=== PATIENT | male | born 1995 | race American Indian/Alaskan Native ===

== ENCOUNTER 2017-08-04 06:18 | Inpatient (IN) | payer MEDICAID ==
[2017-08-04] MEDS ORDERED: ATIVAN IV ONE (06:21)
[2017-08-04] MEDS ORDERED: KEPPRA 1,000 MG in NACL 0.9% 100 ML IV ONE (06:30)
[2017-08-04] MEDS: KEPPRA 1,000 MG/NS 0.75% 100ML 1,000 MG/100 ML BAG IV ONE ×3 (06:40→06:57)
[2017-08-04] MEDS ORDERED: NACL 0.9% 1000 ML 1,000 ML IV ONE (07:10)
--- NOTE | 2017-08-04 07:15 | Emergency Department Report ---
HPI - General Chief Complaint: Seizure Time Seen by Provider: 08/04/17 07:04 - HPI HPI: Room 2 The patient is a 22-year-old male presenting with a chief complaint seizure. Mother states the patient had a seizure at approximately 05:00 this morning while in the last approximately 2-3 minutes. The patient had a second seizure 20 minutes later and then a third seizure approximately 10 minutes after that. At this time the mother called EMS. Mother states the patient may have missed his Keppra last night as well as one time before. The patient's last seizure before today was possibly 2 months ago Location: Central nervous system Duration: [See above] Quality: Generalized tonic-clonic Severity: Moderate Modifying factors: [see above] Context: [see above] Mode of transportation: [not driving] ED Past Medical Hx - Past Medical History Previous Medical History?: Yes Hx Seizures: Yes Additional medical history: fragile x syndrome, MR and seizures - Surgical History Past Surgical History?: No - Family History Family history: no significant - Social History Smoking Status: Never Smoker Substance Use Type: None - Medications Home Medications: Home Medications Medication Instructions Recorded Confirmed Last Taken Type levETIRAcetam [Keppra ORAL LIQ] 1,700 mg PO BID #1 bottle 03/22/16 08/04/17 Rx ED Review of Systems ROS: Stated complaint: SEIZURE Other details as noted in HPI Comment: Unobtainable due to pts medical conditions Physical Exam - Physical Exam Vital Signs: Vital Signs 08/04/17 08/04/17 08/04/17 06:23 06:25 06:31 Pulse Rate 115 H 109 H 107 H Respiratory 19 23 18 Rate Blood Pressure 142/97 142/97 O2 Sat by Pulse 93 100 Oximetry 08/04/17 06:35 Pulse Rate 108 H Respiratory 21 Rate Blood Pressure 142/97 O2 Sat by Pulse 100 Oximetry Physical Exam: GENERAL: The patient is well-nourished male lying on stretcher postictal. [] HEENT: Normocephalic. Atraumatic. Pupils 4 mm to 2 mm bilaterally. Patient has moist mucous membranes. NECK: Supple. Trachea midline CHEST/LUNGS: Clear to auscultation. There is no respiratory distress noted. HEART/CARDIOVASCULAR: Regular. There is tachycardia. There is no gallop rub or murmur. ABDOMEN: Abdomen is soft, nontender. Patient has normal bowel sounds. There is no abdominal distention. SKIN: There is no rash. There is no edema. There is no diaphoresis. NEURO: The patient is asleep/postictal MUSCULOSKELETAL: There is no evidence of acute injury. ED Course Vital Signs 08/04/17 08/04/17 08/04/17 06:23 06:25 06:31 Pulse Rate 115 H 109 H 107 H Respiratory 19 23 18 Rate Blood Pressure 142/97 142/97 O2 Sat by Pulse 93 100 Oximetry 08/04/17 06:35 Pulse Rate 108 H Respiratory 21 Rate Blood Pressure 142/97 O2 Sat by Pulse 100 Oximetry ED Medical Decision Making - Lab Data Result diagrams: 08/04/17 06:45 08/04/17 06:45 Laboratory Tests 08/04/17 08/04/17 08/04/17 06:29 06:45 06:45 WBC 10.0 RBC 4.96 Hgb 15.9 H Hct 45.8 H MCV 92 MCH 32 MCHC 35 H RDW 13.2 Plt Count 176 Lymph % (Auto) 30.5 [place] % (Auto) 4.1 Eos % (Auto) 0.9 Baso % (Auto) 0.6 Lymph # 3.0 [place] # 0.4 Eos # 0.1 Baso # 0.1 Seg Neutrophils % 63.9 Seg Neutrophils # 6.4 Sodium 142 Potassium 3.8 Chloride 101.7 Carbon Dioxide 24 Anion Gap 20 BUN 17 Creatinine 0.6 L Estimated GFR > 60 BUN/Creatinine Ratio 28 Glucose 124 H POC Glucose 138 H Calcium 8.8 Magnesium 2.10 - Radiology Data Radiology results: report reviewed (CT head), image reviewed (CT head) CT head (read by radiologist)-cranial CT scan within normal limits. No acute process noted. No significant change since 01/31/2011 - Differential Diagnosis epilepsy Critical care attestation.: If time is entered above; I have spent that time in minutes in the direct care of this critically ill patient, excluding procedure time. ED Disposition Clinical Impression: Status epilepticus Disposition: -09 OP ADMIT IP TO THIS HOSP Is pt being admited?: Yes Does the pt Need Aspirin: No Condition: Fair Referrals: PRIMARY CARE, [Primary Care Provider] - 3-5 Days Time of Disposition: 12:06 (hospitalist notified)
[2017-08-04 07:32] LABS: Basophils % (Auto) 0.6 % (0.0-1.8); Eosinophils % (Auto) 0.9 % (0.0-4.3); Hematocrit 45.8 % (35.5-45.6); Hemoglobin 15.9 gm/dl (11.8-15.2); Mean Corpuscular HGB Conc 35 % (32-34); Mean Corpuscular Hemoglobin 32 pg (28-32); Mean Corpuscular Volume 92 fl (84-94); Platelet Count 176 K/mm3 (140-440); Red Blood Count 4.96 M/mm3 (3.65-5.03); Red Cell Distribution Width 13.2 % (13.2-15.2)
[2017-08-04 07:35] LABS: Anion Gap 20 mmol/L; BUN/Creatinine Ratio 28; Blood Urea Nitrogen 17 mg/dL (9-20); Calcium 8.8 mg/dL (8.4-10.2); Carbon Dioxide 24 mmol/L (22-30); Chloride 101.7 mmol/L (98-107); Glucose 124 mg/dL (75-100); Potassium 3.8 mmol/L (3.6-5.0); Sodium 142 mmol/L (137-145)
[2017-08-04] MEDS ORDERED: NACL 0.9% 1000 ML 1,000 ML ONE (10:45)
--- NOTE | 2017-08-04 10:52 | Cat Scan Report ---
CT HEAD WITHOUT CONTRAST: HISTORY: Seizure, status epilepticus. Serial contiguous axial images were obtained through the cranium. Intravenous contrast material was not administered. The ventricles are normal in size and appearance. There is no mass effect or midline shift. No areas of abnormally increased or decreased attenuation are seen. No mass lesion is seen. The mastoid air cells and visualized portions of the sinuses are normal. IMPRESSION: Cranial CT scan within normal limits. No acute process noted. No significant change since 01/31/11.
[2017-08-04] MEDS ORDERED: TYLENOL PO PRN (11:41)
[2017-08-04] MEDS ORDERED: MILK OF MAGNESIA PO PRN (11:41)
[2017-08-04] MEDS ORDERED: ZOFRAN IV PRN (11:41)
[2017-08-04] MEDS ORDERED: PROVENTIL IH PRN (11:41)
[2017-08-04] MEDS ORDERED: DULCOLAX PR PRN (11:41)
--- NOTE | 2017-08-04 11:43 | History and Physical Report ---
History of Present Illness Chief complaint: he keeps having seizures. History of present illness: 22 YO Male with Seizure Disorder, Fragile X Syndrome, Mental Retardation presents to ED for evaluation. Pt unable to provide history, but history provided by patient mother, who is at bedside during exam and interview. As per mother, patient was asleep but experienced a witnessed seizure at approximately 05:00 this morning. The seizure was witnessed by the mother and lasted approximately 2-3 minutes. The patient had a second seizure 20 minutes later and then a third seizure approximately 10 minutes after that. At this time the mother called EMS. Upon arrival, patient was postictal, lethargic, and nonverbal. Pt was transported to [facility] for evaluation. Mother states the patient missed his Keppra dosing over the past 2 days. The patient experienced a breakthrough seizure approximately 2 months ago, but was noncompliant with his medications at that time. No reports of fever, chills, CP, Palpitations, trauma , recent ill contacts, vision changes, changes in mood/daily routine, or pain. Past History Past Medical History: seizures, other (Fragile X Synddrome, MR) Past Surgical History: No surgical history, Other (reviewed) Social history: single, lives with family. denies: smoking, alcohol abuse, prescription drug abuse Family history: no significant family history (reviewed) Medications and Allergies Allergies Allergy/AdvReac Type Severity Reaction Status Date / Time No Known Allergies Allergy Unverified 03/22/16 10:33 Home Medications Medication Instructions Recorded Confirmed Last Taken Type levETIRAcetam [Keppra ORAL LIQ] 1,700 mg PO BID #1 bottle 03/22/16 08/04/17 Rx Active Meds: Active Medications Acetaminophen (Tylenol) 650 mg PO Q4H PRN PRN Reason: Pain MILD(1-3)/Fever >100.5/LOPEZ Albuterol (Proventil) 2.5 mg IH Q4HRT PRN PRN Reason: Shortness Of Breath Bisacodyl (Dulcolax) 10 mg MT QDAY PRN PRN Reason: Constipation unrelieved by MOM Levetiracetam (Keppra) 1,700 mg PO BID GENARO Magnesium Hydroxide (Milk Of Magnesia) 30 ml PO Q4H PRN PRN Reason: Constipation Ondansetron HCl (Zofran) 4 mg IV Q8H PRN PRN Reason: N/V unrelieved by Reglan Review of Systems ROS unobtainable: due to mental status Exam - Constitutional Vitals: Temp Pulse Resp BP Pulse Ox 99 H 17 133/93 100 08/04/17 09:00 08/04/17 09:00 08/04/17 09:00 08/04/17 09:00 General appearance: Present: mild distress - EENT Eyes: Present: PERRL ENT: hearing intact, clear oral mucosa - Neck Neck: Present: supple, normal ROM - Respiratory Respiratory effort: normal Respiratory: bilateral: CTA - Cardiovascular Heart Sounds: Present: S1 & S2. Absent: rub, click - Extremities Extremities: pulses symmetrical, No edema Peripheral Pulses: within normal limits - Abdominal General gastrointestinal: Present: soft, non-tender, non-distended, normal bowel sounds Male genitourinary: Present: normal - Integumentary Integumentary: Present: clear, warm, dry - Musculoskeletal Musculoskeletal: gait normal, strength equal bilaterally - Psychiatric Psychiatric: appropriate mood/affect, intact judgment & insight - Neurologic Neurologic: CNII-XII intact, moves all extremities, other (lethargic) Results - Labs CBC & Chem 7: 08/04/17 06:45 08/04/17 06:45 Labs: Abnormal lab results 08/04/17 08/04/17 08/04/17 Range/Units 06:29 06:45 06:45 Hgb 15.9 H (11.8-15.2) gm/dl Hct 45.8 H (35.5-45.6) % MCHC 35 H (32-34) % Creatinine 0.6 L (0.8-1.5) mg/dL Glucose 124 H (75-100) mg/dL POC Glucose 138 H (70-105) Assessment and Plan - Patient Problems (1) Status epilepticus Current Visit: Yes Status: Acute Plan to address problem: Resume keppra therapy, neuro checks, supprotive care, if recurrent seizure will increase keppra dosing, will also consider addition of tegretol if recurrent breakthrough seizures. Pt noncompliant with medication, will continue to monitor for symptoms on therapeutic keppra dose for now. (2) Encephalopathy Current Visit: Yes Status: Acute Plan to address problem: CT head, neuro checks, serial physical exam, (3) Fragile X syndrome Current Visit: Yes Status: Chronic Plan to address problem: Serial neuro exam to evaluate for changes ini neurologic status. Notify MD if deterioration from baseline, (4) Mental retardation Current Visit: Yes Status: Chronic Plan to address problem: Bed alarm, fall precautions, diet with assistance when awake and alert only, aspiration precautions. (5) DVT prophylaxis Current Visit: Yes Status: Acute
[2017-08-04] MEDS: KEPPRA PO SCH (22:47)
[2017-08-04] MEDS ORDERED: ATIVAN IV PRN (23:48)
--- NOTE | 2017-08-05 10:15 | Progress Note ---
Assessment and Plan Assessment and plan: 22 YO Male with Seizure Disorder, Fragile X Syndrome, Mental Retardation presents to ED for evaluation. Pt unable to provide history, but history provided by patient mother, after a witnessed seizure. As per the mother patient takes Keppra for seizure disorder Status epilepticus No acute findings on CT head, continue Keppra, neurology consult Metabolic Encephalopathy Most likely due to post ictal period, now improved Fragile X syndrome Continue supportive care, baseline Mental retardation Continue supportive care History Interval history: Patient is now awake, no longer somnolent. Communicates that he would like to eat. Unable to give any history due to mental retardation Hospitalist Physical - Physical exam Narrative exam: General.: Appears well, no distress, nontoxic HEENT: Moist mucous membranes, extraocular muscles intact, no lymphadenopathy Neck: supple Cardiac: S1-S2 heard Lungs: clear to auscultation bilaterally Abdomen: soft , nontender, nondistended, bowel sounds positive Extremities: no edema clubbing or cyanosis Skin: no rash or lesions Neurologic: He moves his head and upper extremities. He communicates that he wants to eat. He is polite Patient is mentally retarded and lacks insight - Constitutional Vitals: Temp Pulse Resp BP Pulse Ox 97.7 F 66 20 138/98 100 08/05/17 08:10 08/05/17 08:10 08/05/17 08:10 08/05/17 08:10 08/05/17 08:10 General appearance: Present: mild distress Results - Labs CBC & Chem 7: 08/04/17 06:45 08/04/17 06:45 Labs: Laboratory Last Values WBC 10.0 K/mm3 (4.5-11.0) 08/04/17 06:45 RBC 4.96 M/mm3 (3.65-5.03) 08/04/17 06:45 Hgb 15.9 gm/dl (11.8-15.2) H 08/04/17 06:45 Hct 45.8 % (35.5-45.6) H 08/04/17 06:45 MCV 92 fl (84-94) 08/04/17 06:45 MCH 32 pg (28-32) 08/04/17 06:45 MCHC 35 % (32-34) H 08/04/17 06:45 RDW 13.2 % (13.2-15.2) 08/04/17 06:45 Plt Count 176 K/mm3 (140-440) 08/04/17 06:45 Lymph % (Auto) 30.5 % (13.4-35.0) 08/04/17 06:45 [place] % (Auto) 4.1 % (0.0-7.3) 08/04/17 06:45 Eos % (Auto) 0.9 % (0.0-4.3) 08/04/17 06:45 Baso % (Auto) 0.6 % (0.0-1.8) 08/04/17 06:45 Lymph # 3.0 K/mm3 (1.2-5.4) 08/04/17 06:45 Gregory # 0.4 K/mm3 (0.0-0.8) 08/04/17 06:45 Eos # 0.1 K/mm3 (0.0-0.4) 08/04/17 06:45 Baso # 0.1 K/mm3 (0.0-0.1) 08/04/17 06:45 Seg Neutrophils % 63.9 % (40.0-70.0) 08/04/17 06:45 Seg Neutrophils # 6.4 K/mm3 (1.8-7.7) 08/04/17 06:45 Sodium 142 mmol/L (137-145) 08/04/17 06:45 Potassium 3.8 mmol/L (3.6-5.0) 08/04/17 06:45 Chloride 101.7 mmol/L (98-107) 08/04/17 06:45 Carbon Dioxide 24 mmol/L (22-30) 08/04/17 06:45 Anion Gap 20 mmol/L 08/04/17 06:45 BUN 17 mg/dL (9-20) 08/04/17 06:45 Creatinine 0.6 mg/dL (0.8-1.5) L 08/04/17 06:45 Estimated GFR > 60 ml/min 08/04/17 06:45 BUN/Creatinine Ratio 28 % 08/04/17 06:45 Glucose 124 mg/dL (75-100) H 08/04/17 06:45 POC Glucose 138 (70-105) H 08/04/17 06:29 Calcium 8.8 mg/dL (8.4-10.2) 08/04/17 06:45 Magnesium 2.10 mg/dL (1.7-2.3) 08/04/17 06:45 - Imaging and Cardiology CT Scan - head: image reviewed (no acute findings)
[2017-08-05] MEDS: KEPPRA PO SCH (10:26)
--- NOTE | 2017-08-05 17:05 | Discharge Summary ---
Providers - Providers Date of Admission: 08/04/17 11:41 Attending physician: BRIANNE FELIZ MD 08/05/17 10:05 Consult to Physician [CONS] Routine Consulting Provider: JUAN RAMON HOFFMANN Reason For Exam: seizure Place consult to:: dr. hoffmann Notified:: office Phone number called:: Was contact made?: Yes If yes, spoke with:: gonzalez Time called:: 14:31 Speech Therapy Evaluation and Treat [CONS] Routine Reason For Exam: dysphagia Primary care physician: [employer] REPRESENTATIVE Hospitalization Condition: Fair Hospital course: 22 YO Male with Seizure Disorder, Fragile X Syndrome, Mental Retardation presents to ED for evaluation. Pt unable to provide history, but history provided by patient mother, after a witnessed seizure. As per the mother patient takes Keppra for seizure disorder, and had missed the PM dose. Patient received Ativan after which seizure terminated. He did have postictal state. He returned to his baseline mentation. His mother was counseled that he must not miss any dose of Keppra in future. He was discharged in improved condition Discharge diagnoses Status epilepticus Metabolic Encephalopathy Fragile X syndrome Mental retardation Disposition: DC-01 TO HOME OR SELFCARE Time spent for discharge: 33 minutes Core Measure Documentation - Palliative Care Palliative Care/ Comfort Measures: Not Applicable - Core Measures Any of the following diagnoses?: none Exam - Physical Exam Narrative exam: General.: Appears well, no distress, nontoxic HEENT: Moist mucous membranes, extraocular muscles intact, no lymphadenopathy Neck: supple Cardiac: S1-S2 heard Lungs: clear to auscultation bilaterally Abdomen: soft , nontender, nondistended, bowel sounds positive Extremities: no edema clubbing or cyanosis Skin: no rash or lesions Neurologic: He moves his head and upper extremities. He communicates that he wants to eat. He is polite Patient is mentally retarded and lacks insight - Constitutional Vitals: Temp Pulse Resp BP Pulse Ox 97.7 F 66 20 138/98 97 08/05/17 08:10 08/05/17 08:10 08/05/17 08:10 08/05/17 08:10 08/05/17 11:31 Plan Follow up with: KEVIN VANN MD [Primary Care Provider] - 3-5 Days
[2017-08-05 17:18] VITALS: BP 125/80
== END 2017-08-05 19:00 | disposition home or self-care (01) | DRG 101 ==
LOC: ED 06:18 → 3A 11:41
PROVIDERS: ADMIT Internal Medicine; ATTEND Internal Medicine
DX: G40.901 Epilepsy, unspecified, not intractable, with status epilepticus (principal); Q99.2 Fragile X chromosome; F79 Unspecified intellectual disabilities; I34.0 Nonrheumatic mitral (valve) insufficiency
CPT/HCPCS: 36415; 70450; 80048; 82962; 83735; 85025; 96361; 96365; J1953; J7030

== ENCOUNTER 2020-07-27 09:33 | Emergency (ER) | payer MEDICAID ==
[2020-07-27] MEDS ORDERED: levETIRAcetam 1000 MG/NS 0.75% 1,000 MG/100 ML BAG IV ONE (10:20)
[2020-07-27] MEDS ORDERED: SODIUM CHLORIDE 0.9% 1000 ML 1,000 ML IV ONE (11:11)
--- NOTE | 2020-07-27 11:16 | Emergency Department Report ---
ED Seizure HPI - General Chief Complaint: Seizure Stated Complaint: ACTIVE SEIZURE Time Seen by Provider: 07/27/20 10:18 Source: EMS Mode of arrival: Stretcher Limitations: Other - History of Present Illness Initial Comments: Patient is 25 years old male with history of seizure on Keppra. Patient brought to the emergency room via EMS from home with active seizure. Patient received Ativan 1 mg IM by EMS. Patient received another 1mg IV in the ER that he stopped his seizure. Patient is post ictal now. Found patient to have history of fragile X syndrome and mental retardation. MD Complaint: seizure -: Sudden, This morning Description of Episode: loss of consciousness, tonic-clonic movement, bladder incontinence, post-event confusion Witnessed:: Yes Trauma: No Seizure History: known seizure disorder Place: home Possible Precipitating Event: none - Related Data Previous Rx's Medication Instructions Recorded Last Taken Type levETIRAcetam [Keppra ORAL LIQ] 1,700 mg PO BID #1 bottle 03/22/16 09/12/18 Rx Ciprofloxacin HCl [Cipro] 500 mg PO BID #6 tablet 09/13/18 Unknown Rx Sennosides [Senna] 8.6 mg PO BID #60 tablet 09/13/18 Unknown Rx bisacodyL [Dulcolax suppos] 10 mg TN QDAY PRN #30 supp.rect 09/13/18 Unknown Rx polyethylene glycoL 3350 [Miralax 17 gm PO QDAY #30 packet 09/13/18 Unknown Rx 3350] levETIRAcetam [Keppra] 1,500 mg PO BID #470 ml 07/27/20 Unknown Rx Allergies Allergy/AdvReac Type Severity Reaction Status Date / Time No Known Allergies Allergy Unverified 03/22/16 10:33 ED Review of Systems ROS: Stated complaint: ACTIVE SEIZURE Other details as noted in HPI Comment: All other systems reviewed and negative Constitutional: denies: chills, fever Respiratory: denies: cough, shortness of breath Cardiovascular: denies: chest pain Gastrointestinal: denies: abdominal pain Musculoskeletal: denies: back pain ED Past Medical Hx - Past Medical History Previous Medical History?: Yes Hx Congestive Heart Failure: No Hx Diabetes: No 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) Hx Asthma: No Hx COPD: No Hx HIV: No Additional medical history: MR and seizures - Social History Smoking Status: Unknown if ever smoked - Medications Home Medications: Home Medications Medication Instructions Recorded Confirmed Last Taken Type levETIRAcetam [Keppra ORAL LIQ] 1,700 mg PO BID #1 bottle 03/22/16 09/13/18 09/12/18 Rx Ciprofloxacin HCl [Cipro] 500 mg PO BID #6 tablet 09/13/18 Unknown Rx Sennosides [Senna] 8.6 mg PO BID #60 tablet 09/13/18 Unknown Rx bisacodyL [Dulcolax suppos] 10 mg TN QDAY PRN #30 supp.rect 09/13/18 Unknown Rx polyethylene glycoL 3350 [Miralax 17 gm PO QDAY #30 packet 09/13/18 Unknown Rx 3350] levETIRAcetam [Keppra] 1,500 mg PO BID #470 ml 07/27/20 Unknown Rx ED Physical Exam - General Limitations: Other General appearance: postictal - Head Head exam: Present: atraumatic, normocephalic, normal inspection - Eye Eye exam: Present: normal appearance - ENT ENT exam: Present: mucous membranes dry - Neck Neck exam: Present: normal inspection, full ROM. Absent: tenderness, meningismus - Respiratory Respiratory exam: Present: normal lung sounds bilaterally - Cardiovascular Cardiovascular Exam: Present: tachycardia - GI/Abdominal GI/Abdominal exam: Present: soft, normal bowel sounds. Absent: distended, tenderness, guarding, rebound, rigid, organomegaly, mass, bruit, pulsatile mass, hernia - Extremities Exam Extremities exam: Present: normal inspection, full ROM, normal capillary refill. Absent: pedal edema, calf tenderness - Back Exam Back exam: Present: normal inspection, full ROM. Absent: CVA tenderness (R), CVA tenderness (L) - Neurological Exam Neurological exam: Present: alert, oriented X3, CN II-XII intact - Psychiatric Psychiatric exam: Present: normal mood - Skin Skin exam: Present: warm, intact, normal color ED Course Vital Signs 07/27/20 07/27/20 07/27/20 10:29 11:00 11:30 Temperature 102 F H 99.6 F Pulse Rate 150 H 139 H 122 H Respiratory 14 24 19 Rate Blood Pressure 120/66 99/50 95/51 O2 Sat by Pulse 94 98 98 Oximetry 10/18/20 10/18/20 10/18/20 12:01 12:31 13:01 Temperature Pulse Rate 106 H 101 H 99 H Respiratory 18 17 18 Rate Blood Pressure 95/51 95/51 95/51 O2 Sat by Pulse 98 97 98 Oximetry 07/27/20 07/27/20 07/27/20 13:30 14:00 14:30 Temperature Pulse Rate 96 H 88 95 H Respiratory 18 19 16 Rate Blood Pressure 110/70 108/71 109/70 O2 Sat by Pulse 98 98 99 Oximetry 07/27/20 07/27/20 07/27/20 15:00 15:30 16:00 Temperature Pulse Rate 93 H 91 H 89 Respiratory 19 14 18 Rate Blood Pressure 115/70 115/74 114/71 O2 Sat by Pulse 99 98 99 Oximetry 07/27/20 07/27/20 07/27/20 16:30 17:00 17:30 Temperature Pulse Rate 92 H 95 H 89 Respiratory 16 12 16 Rate Blood Pressure 113/73 117/72 115/74 O2 Sat by Pulse 99 99 100 Oximetry 07/27/20 07/27/20 07/27/20 18:00 18:31 19:01 Temperature Pulse Rate 88 92 H 97 H Respiratory 20 24 14 Rate Blood Pressure 113/73 115/74 125/68 O2 Sat by Pulse 96 96 97 Oximetry 07/27/20 07/27/20 19:31 20:01 Temperature Pulse Rate 81 88 Respiratory 15 23 Rate Blood Pressure 125/68 119/74 O2 Sat by Pulse 96 98 Oximetry ED Medical Decision Making - Lab Data Result diagrams: 07/27/20 10:39 07/27/20 10:39 - Medical Decision Making Patient is 25 years old male with history of seizure on Keppra. Patient brought to the emergency room via EMS from home with active seizure. Patient received Ativan 1 mg IM by EMS. Patient received another 2.mg IV in the ER that he stopped his seizure. Patient is post ictal now. No seizure activity observed in the ER. Labs reviewed and is unremarkable. Patient was postictal for long period of time. Patient received 3 mg of Ativan in total. Patient now is alert but is st ill confused. Patient is moving all his extremities with no focal deficit. Patient given prescription for Keppra. Patient will need to follow-up with his neurologist in the next 2 to 3 days and to return to the ER if he develop any new symptoms. Critical care attestation.: If time is entered above; I have spent that time in minutes in the direct care of this critically ill patient, excluding procedure time. ED Disposition Clinical Impression: Seizure Disposition: DC-01 TO HOME OR SELFCARE Is pt being admited?: No Condition: Stable Instructions: Recurrent Seizures Adult (ED) Prescriptions: levETIRAcetam [Keppra] 1,500 mg PO BID #470 ml Referrals: PRIMARY CARE, [Primary Care Provider] - 3-5 Days
[2020-07-27 11:34] LABS: Hematocrit 44.3 % (35.5-45.6); Mean Corpuscular HGB Conc 34 % (32-34); Mean Corpuscular Volume 92 fl (84-94); Platelet Count 185 K/mm3 (140-440); Red Blood Count 4.84 M/mm3 (3.65-5.03); Red Cell Distribution Width 13.4 % (13.2-15.2)
--- NOTE | 2020-07-27 11:45 | XRay Report ---
CHEST 1 VIEW INDICATION: hypoxia,AMS COMPARISON: FINDINGS: SUPPORT DEVICES: None. HEART / MEDIASTINUM: No significant abnormality. LUNGS / PLEURA: No significant pulmonary or pleural abnormality. No pneumothorax. ADDITIONAL FINDINGS: Gastric distention IMPRESSION: 1. No acute cardiopulmonary disease Signer Name: Lawrence Ugarte MD Signed: 07/27/2020 11:40 AM Workstation Name: [id number]
[2020-07-27 11:52] LABS: Alanine Aminotransferase 16 units/L (7-56); Albumin 4.4 g/dL (3.9-5); Blood Urea Nitrogen 11 mg/dL (9-20); Calcium 8.6 mg/dL (8.4-10.2); Hemolysis Index 9
[2020-07-27 12:12] LABS: BUN/Creatinine Ratio 16; Bilirubin,Direct < 0.2 mg/dL (0-0.2)
[2020-07-27 13:09] LABS: Band Neutrophils # (Manual) 0.1 K/mm3; Basophils % (Manual) 0 % (0.0-1.8); Eosinophils % (Manual) 0 % (0.0-4.3); RBC Morphology Normal; Total Cells Counted 100
[2020-07-27 13:10] LABS: Platelet Estimate Consistent w Auto
[2020-07-27 15:44] LABS: Amorphous Crystals,Urine 1+; Bilirubin,Urine NEG (Negative); Blood,Urine MOD (Negative); Color,Urine Yellow (Yellow); Hyaline Casts,Urine 15 /LPF; Mucus,Urine FEW /HPF
[2020-07-27] MEDS ORDERED: LORazepam 2 MG/ML VIAL ONE (15:45)
[2020-07-27 15:50] LABS: Amphetamine Screen,Urine PRESUMPTIVE NEGATIVE; Benzodiazepines Screen,Urine PRESUMPTIVE NEGATIVE; Cannabinoid Screen,Urine PRESUMPTIVE NEGATIVE; Cocaine Screen,Urine PRESUMPTIVE NEGATIVE; Methadone Screen,Urine PRESUMPTIVE NEGATIVE; Opiate Screen,Urine PRESUMPTIVE NEGATIVE
[2020-07-27] MEDS ORDERED: levETIRAcetam 1000 MG/NS 0.75% 0 MG/0 ML BAG IV ONE (18:15)
[2020-07-27 20:15] VITALS: BP 119/74
== END 2020-07-27 22:45 | disposition home or self-care (01) ==
LOC: ED 09:33
DX: R56.9 Unspecified convulsions (principal); I10 Essential (primary) hypertension; Z79.899 Other long term (current) drug therapy
CPT/HCPCS: 36415; 71045; 80048; 80076; 80307; 81001; 85007; 85025; 93005; 96361; 96374; 99285; J7030; 80320; G0480; J1953; J2060

== ENCOUNTER 2021-02-24 15:55 | Emergency (ER) | payer MEDICAID ==
[2021-02-24] MEDS ORDERED: levETIRAcetam 1000 MG/NS 0.75% 1,000 MG/100 ML BAG IV ONE ×2 (16:11→16:18)
--- NOTE | 2021-02-24 16:31 | Emergency Department Report ---
HPI - General Chief Complaint: Seizure Time Seen by Provider: 02/24/21 16:21 - HPI HPI: Room 21 Patient is a 25-year-old male present with a chief complaint of seizure. Per EMS patient had seizure at home. EMS reports the mother states the patient had not taken his Keppra today. EMS was called and transported the patient to the ED reportedly during registration patient had another generalized tonic-clonic seizure was administered 2 mg of Ativan. At the time of my interview the patient is currently postictal and does not answer questions. 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) Additional medical history: MR and seizures - Surgical History Past Surgical History?: No - Family History Family history: no significant - Social History Smoking Status: Unknown if ever smoked - Medications Home Medications: Home Medications Medication Instructions Recorded Confirmed Last Taken Type levETIRAcetam [Keppra ORAL LIQ] 1,700 mg PO BID #1 bottle 03/22/16 09/13/18 09/12/18 Rx Ciprofloxacin HCl [Cipro] 500 mg PO BID #6 tablet 09/13/18 Unknown Rx Sennosides [Senna] 8.6 mg PO BID #60 tablet 09/13/18 Unknown Rx bisacodyL [Dulcolax suppos] 10 mg [place] QDAY PRN #30 supp.rect 09/13/18 Unknown Rx polyethylene glycoL 3350 [Miralax 17 gm PO QDAY #30 packet 09/13/18 Unknown Rx 3350] levETIRAcetam [Keppra] 1,500 mg PO BID #470 ml 02/24/21 Unknown Rx ED Review of Systems ROS: Stated complaint: SEIZURE Other details as noted in HPI Comment: Unobtainable due to pts medical conditions (Postictal) Physical Exam - Physical Exam Vital Signs: Vital Signs 02/24/21 16:08 Temperature 98.2 F Pulse Rate 113 H Respiratory 16 Rate Blood Pressure 157/94 O2 Sat by Pulse 98 Oximetry Physical Exam: GENERAL: The patient is well-nourished male in a postictal state lying on stretcher. [] HEENT: Normocephalic. Hematoma over the left eyebrow. Swelling to the left side of the upper lip. Patient has moist mucous membranes. NECK: Supple. Trachea midline. No axial step-off CHEST/LUNGS: Clear to auscultation. There is no respiratory distress noted. HEART/CARDIOVASCULAR: Regular. There is no tachycardia. There is no gallop rub or murmur. ABDOMEN: Abdomen is soft, nontender. Patient has normal bowel sounds. There is no abdominal distention. SKIN: There is no rash. There is no edema. There is no diaphoresis. NEURO: The patient is currently postictal and localizes to tactile stimuli. Patient does not respond verbally. Moves all extremities MUSCULOSKELETAL: There is no evidence of acute injury. ED Course Vital Signs 02/24/21 16:08 Temperature 98.2 F Pulse Rate 113 H Respiratory 16 Rate Blood Pressure 157/94 O2 Sat by Pulse 98 Oximetry - Reevaluation(s) Reevaluation #1: 02/24/21 21:14 Patient now sitting up in bed denying complaints. ED Medical Decision Making - Lab Data Result diagrams: 02/24/21 16:37 02/24/21 16:37 Laboratory Tests 02/24/21 02/24/21 02/24/21 16:37 16:37 16:37 WBC 13.2 H RBC 4.51 Hgb 14.3 Hct 42.2 MCV 94 MCH 32 MCHC 34 RDW 13.9 Plt Count 182 Add Manual Diff Complete Total Counted 100 Seg Neutrophils % Customer Retention Representative Seg Neuts % (Manual) 95.0 H Lymphocytes % (Manual) 3.0 L Monocytes % (Manual) 2.0 Promyelocytes % 0 Nucleated RBC % Not Reportable Seg Neutrophils # Man 12.5 H Band Neutrophils # 0.0 Lymphocytes # (Manual) 0.4 L Abs React Lymphs (Man) 0.0 Monocytes # (Manual) 0.3 Eosinophils # (Manual) 0.0 Basophils # (Manual) 0.0 Metamyelocytes # 0.0 Myelocytes # 0.0 Promyelocytes # 0.0 Blast Cells # 0.0 WBC Morphology Not Reportable Hypersegmented Neuts Not Reportable Hyposegmented Neuts Not Reportable Hypogranular Neuts Not Reportable Smudge Cells Not Reportable Toxic Granulation Not Reportable Toxic Vacuolation Not Reportable Dohle Bodies Not Reportable Pelger-Huet Anomaly Not Reportable [place]a Rods Not Reportable Platelet Estimate Consistent w auto Clumped Platelets Not Reportable Plt Clumps, EDTA Not Reportable Large Platelets Not Reportable Giant Platelets Not Reportable Platelet Satelliting Not Reportable Plt Morphology Comment Not Reportable RBC Morphology Not Reportable Dimorphic RBCs Not Reportable Polychromasia Not Reportable Hypochromasia Not Reportable Poikilocytosis Not Reportable Anisocytosis Few Microcytosis Not Reportable Macrocytosis Not Reportable Spherocytes Not Reportable Pappenheimer Bodies Not Reportable Sickle Cells Not Reportable Target Cells Not Reportable Tear Drop Cells Not Reportable Ovalocytes Not Reportable Helmet Cells Not Reportable [place] Bodies Not Reportable Welcome Rings Not Reportable Jonathon Cells Not Reportable Bite Cells Not Reportable Crenated Cell Not Reportable Elliptocytes Not Reportable Acanthocytes (Spur) Not Reportable Rouleaux Not Reportable Hemoglobin C Crystals Not Reportable Schistocytes Not Reportable Malaria parasites Not Reportable Low Bodies Not Reportable Hem Pathologist Commnt No Sodium 139 Potassium 3.2 L Chloride 103.0 Carbon Dioxide 20 L Anion Gap 19 BUN 6 L Creatinine 0.5 L Estimated GFR > 60 BUN/Creatinine Ratio 12 Glucose 115 H Calcium 8.0 L Magnesium 2.10 - Radiology Data Radiology results: report reviewed (CT head, CT cervical spine), image reviewed (CT head, CT cervical spine) [facility] [address] [place] [address] Cat Scan Report Signed Patient: MARILY TYLER MR#: [id number] : 1995 Acct:[id number] Age/Sex: 25 / M ADM Date: 02/24/21 Loc: ED Attending Dr: Ordering Physician: CHRISTINE HERRERA MD Date of Service: 02/24/21 Procedure(s): CT head/brain wo con Accession Number(s): [id number] cc: CHRISTINE HERRERA MD CT head/brain wo con INDICATION: Altered mental status. TECHNIQUE: All CT scans at this location are performed using CT dose reduction for ALARA by means of automated exposure control. COMPARISON: None available. FINDINGS: There is no evidence of hemorrhage, hydrocephalus, brain edema, or mass effect/mass lesion. There is overall normal brain formation and brain volume for the patient's age. 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 Ventricular and cisternal/sulcal size is otherwise normal for age. The included paranasal sinuses and mastoid air cells are clear. The orbits appear unremarkab le. IMPRESSION: 1. No acute intracranial abnormality. Signer Name: Brian Winkler MD Signed: 02/24/2021 5:01 PM Workstation Name: [id number] Transcribed By: DONTRELL Dictated By: Brian Winkler MD Electronically Authenticated By: Brian Winkler MD Signed Date/Time: 02/24/211700 DD/ 99 TD/TT: Print Cancel [facility] [address] [place] [address] Cat Scan Report Signed Patient: MARILY TYLER MR#: [id number] : 1995 Acct:[id number] Age/Sex: 25 / M ADM Date: 02/24/21 Loc: ED Attending Dr: Ordering Physician: CHRISTINE HERRERA MD Date of Service: 02/24/21 Procedure(s): CT cervical spine wo con Accession Number(s): [id number] cc: CHRISTINE HERRERA MD CT CERVICAL SPINE WITHOUT CONTRAST INDICATION / CLINICAL INFORMATION: Seizure, head injury, postictal. TECHNIQUE: Axial CT images were obtained through the cervical spine. Sagittal and coronal reformatted images were produced. All CT scans at this location are performed using CT dose reduction for ALARA by means of automated exposure control. COMPARISON: None available. FINDINGS: Alignment: Normal. No acute subluxation. Geographic Bone Lesion: None present. Fracture: No acute fracture. Degenerative Changes: No significant degenerative changes. Epidural Hematoma: Not present. Prevertebral / Paraspinal Soft Tissues: Unremarkable. IMPRESSION: No acute osseous findings in the cervical spine. Signer Name: Joel Thurston MD Signed: 02/24/2021 5:09 PM W orkstation Name: [id number] Transcribed By: MARU Dictated By: JOEL THURSTON MD Electronically Authenticated By: JOEL THURSTON MD Signed Date/Time: 02/24/211708 DD/ 06 TD/TT: Print Cancel - Differential Diagnosis Seizure, closed head injury, ICH, cervical fracture, Critical care attestation.: If time is entered above; I have spent that time in minutes in the direct care of this critically ill patient, excluding procedure time. ED Disposition Clinical Impression: Seizure Disposition: DC-01 TO HOME OR SELFCARE Is pt being admited?: No Does the pt Need Aspirin: No Condition: Stable Instructions: Epilepsy, [id number] Additional Instructions: Return to the emergency department should you develop worsening symptoms, inability to tolerate food or liquids, high fever or any other concerns Prescriptions: levETIRAcetam [Keppra] 1,500 mg PO BID #470 ml Referrals: PRIMARY CAREMD [Primary Care Provider] - 3-5 Days Time of Disposition: 21:16
[2021-02-24 16:47] LABS: Hematocrit 42.2 % (35.5-45.6); Hemoglobin 14.3 gm/dl (11.8-15.2); Mean Corpuscular HGB Conc 34 % (32-34); Mean Corpuscular Volume 94 fl (84-94); Platelet Count 182 K/mm3 (140-440); Red Blood Count 4.51 M/mm3 (3.65-5.03); Red Cell Distribution Width 13.9 % (13.2-15.2)
--- NOTE | 2021-02-24 17:06 | Cat Scan Report ---
CT head/brain wo con INDICATION: Altered mental status. TECHNIQUE: All CT scans at this location are performed using CT dose reduction for ALARA by means of automated e xposure control. COMPARISON: None available. FINDINGS: There is no evidence of hemorrhage, hydrocephalus, brain edema, or mass effect/mass lesion. There is overall normal brain formation and brain volume for the patient's age. 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 Ventricular and cisternal/sulcal size is otherwise normal for age. The included paranasal sinuses and mastoid air cells are clear. The orbits appear unremarkable. IMPRESSION: 1. No acute intracranial abnormality. Signer Name: Brian Winkler MD Signed: 02/24/2021 5:01 PM Workstation Name: [id number]
[2021-02-24 17:07] LABS: Blood Urea Nitrogen 6 mg/dL (9-20); Hemolysis Index 4
[2021-02-24 17:11] LABS: BUN/Creatinine Ratio 12
--- NOTE | 2021-02-24 17:13 | Cat Scan Report ---
CT CERVICAL SPINE WITHOUT CONTRAST INDICATION / CLINICAL INFORMATION: Seizure, head injury, postictal. TECHNIQUE: Axial CT images were obtained through the cervical spine. Sagittal and coronal reformatted images were produced. All CT scans at this location are performed using CT dose reduction for ALARA by means of automated exposure control. COMPARISON: None available. FINDINGS: Alignment: Normal. No acute subluxation. Geographic Bone Lesion: None present. Fracture: No acute fracture. Degenerative Changes: No significant degenerative changes. Epidural Hematoma: Not present. Prevertebral / Paraspinal Soft Tissues: Unremarkable. IMPRESSION: No acute osseous findings in the cervical spine. Signer Name: Hema Thurston MD Signed: 02/24/2021 5:09 PM Workstation Name: [id number]
[2021-02-24 17:18] LABS: Total Cells Counted 100
[2021-02-24 17:19] LABS: Anisocytosis Few; Platelet Estimate Consistent w Auto
[2021-02-24 23:28] VITALS: BP 145/101
== END 2021-02-24 23:40 | disposition home or self-care (01) ==
LOC: ED 15:55
DX: G40.909 Epilepsy, unspecified, not intractable, without status epilepticus (principal); Z79.899 Other long term (current) drug therapy
CPT/HCPCS: 36415; 70450; 72125; 80048; 83735; 85007; 85025; 96365; 96366; 99284; J1953

== ENCOUNTER 2021-05-04 03:47 | Inpatient (IN) | payer MEDICAID ==
[2021-05-04] MEDS ORDERED: levETIRAcetam 500 MG in DEXTROSE 5% IN WATER 100 ML IV ONE (03:57)
[2021-05-04] MEDS ORDERED: levETIRAcetam 1000 MG/NS 0.75% 1,000 MG/100 ML BAG IV ONE (03:57)
--- NOTE | 2021-05-04 04:06 | Emergency Department Report ---
HPI - HPI HPI: Room 21 The patient is a 25-year-old male present with a chief complaint of seizure. Per EMS the patient missed his Keppra for 1 day. Patient had a seizure at home reported fell and struck his head. EMS arrived on scene states the patient had a total of 3 more seizures before arriving in the ED requiring Ativan be administered. EMS states they administered a total of 4 mg of Ativan. Upon arrival to the ED the patient is postictal. 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) Additional medical history: MR and seizures - Family History Family history: no significant - Social History Smoking Status: Unknown if ever smoked Substance Use Type: None <CHRISTINE HERRERA - Last Filed: 05/04/21 05:22> <SANDY CARTER - Last Filed: 05/04/21 10:43> - Medications Home Medications: Home Medications Medication Instructions Recorded Confirmed Last Taken Type levETIRAcetam [Keppra ORAL LIQ] 1,700 mg PO BID #1 bottle 03/22/16 09/13/18 09/12/18 Rx Ciprofloxacin HCl [Cipro] 500 mg PO BID #6 tablet 09/13/18 Unknown Rx Sennosides [Senna] 8.6 mg PO BID #60 tablet 09/13/18 Unknown Rx bisacodyL [Dulcolax suppos] 10 mg [place] QDAY PRN #30 supp.rect 09/13/18 Unknown Rx polyethylene glycoL 3350 [Miralax 17 gm PO QDAY #30 packet 09/13/18 Unknown Rx 3350] levETIRAcetam [Keppra] 1,500 mg PO BID #470 ml 05/04/21 Unknown Rx ED Review of Systems ROS: Stated complaint: SEIZURE Other details as noted in HPI Comment: Unobtainable due to pts medical conditions (Postictal) <CHRISTINE HERRERA - Last Filed: 05/04/21 05:22> ROS: Stated complaint: SEIZURE Other details as noted in HPI <SANDY CARTER - Last Filed: 05/04/21 10:43> Physical Exam - Physical Exam Physical Exam: GENERAL: The patient is well-developed well-nourished male lying on stretcher postictal. [] HEENT: Normocephalic. Left supraorbital swelling. Patient has moist mucous membranes. NECK: Supple. No axial step-off CHEST/LUNGS: Clear to auscultation. There is no respiratory distress noted. HEART/CARDIOVASCULAR: Regular. There is no tachycardia. There is no gallop rub or murmur. ABDOMEN: Abdomen is soft, nontender. Patient has normal bowel sounds. There is no abdominal distention. SKIN: There is no rash. There is no edema. There is no diaphoresis. NEURO: The patient is postictal MUSCULOSKELETAL: There is no evidence of acute injury. <CHRISTINE HERRERA - Last Filed: 05/04/21 05:22> - Physical Exam Vital Signs: Vital Signs 05/04/21 05/04/21 05/04/21 04:10 04:28 04:30 Pulse Rate 118 H 114 H 108 H Respiratory 19 15 Rate Blood Pressure 124/67 Blood Pressure [Left] O2 Sat by Pulse 100 100 100 Oximetry 05/04/21 05/04/21 05/04/21 04:50 05:00 05:16 Pulse Rate 102 H 97 H 96 H Respiratory 20 17 16 Rate Blood Pressure 137/87 124/67 Blood Pressure 137/87 [Left] O2 Sat by Pulse 100 100 100 Oximetry 05/04/21 05/04/21 05/04/21 05:30 05:46 06:00 Pulse Rate 93 H 91 H 88 Respiratory 21 23 18 Rate Blood Pressure 138/91 138/91 143/91 Blood Pressure [Left] O2 Sat by Pulse 100 100 100 Oximetry 05/04/21 05/04/21 05/04/21 06:16 06:30 06:46 Pulse Rate 86 88 77 Respiratory 18 17 16 Rate Blood Pressure 143/91 145/92 145/92 Blood Pressure [Left] O2 Sat by Pulse 100 100 100 Oximetry 05/04/21 05/04/21 05/04/21 07:00 07:16 07:30 Pulse Rate 79 96 H 72 Respiratory 16 21 15 Rate Blood Pressure 143/90 143/90 144/93 Blood Pressure [Left] O2 Sat by Pulse 100 100 100 Oximetry 05/04/21 05/04/21 05/04/21 07:46 08:00 08:16 Pulse Rate 73 66 74 Respiratory 14 15 15 Rate Blood Pressure 144/93 142/93 142/93 Blood Pressure [Left] O2 Sat by Pulse 100 100 100 Oximetry 05/04/21 05/04/21 05/04/21 08:30 08:46 09:00 Pulse Rate 71 67 65 Respiratory 15 14 15 Rate Blood Pressure 134/87 134/87 146/99 Blood Pressure [Left] O2 Sat by Pulse 100 100 100 Oximetry 05/04/21 05/04/21 05/04/21 09:16 09:30 09:38 Pulse Rate 63 56 L Respiratory 13 13 16 Rate Blood Pressure 146/99 149/98 Blood Pressure [Left] O2 Sat by Pulse 100 100 Oximetry <SANDY CARTER - Last Filed: 05/04/21 10:43> ED Course Vital Signs 05/04/21 05/04/21 05/04/21 04:10 04:28 04:30 Pulse Rate 118 H 114 H 108 H Respiratory 19 15 Rate Blood Pressure 124/67 Blood Pressure [Left] O2 Sat by Pulse 100 100 100 Oximetry 05/04/21 05/04/21 05/04/21 04:50 05:00 05:16 Pulse Rate 102 H 97 H 96 H Respiratory 20 17 16 Rate Blood Pressure 137/87 124/67 Blood Pressure 137/87 [Left] O2 Sat by Pulse 100 100 100 Oximetry 05/04/21 05/04/21 05/04/21 05:30 05:46 06:00 Pulse Rate 93 H 91 H 88 Respiratory 21 23 18 Rate Blood Pressure 138/91 138/91 143/91 Blood Pressure [Left] O2 Sat by Pulse 100 100 100 Oximetry 05/04/21 05/04/21 05/04/21 06:16 06:30 06:46 Pulse Rate 86 88 77 Respiratory 18 17 16 Rate Blood Pressure 143/91 145/92 145/92 Blood Pressure [Left] O2 Sat by Pulse 100 100 100 Oximetry 05/04/21 05/04/21 05/04/21 07:00 07:16 07:30 Pulse Rate 79 96 H 72 Respiratory 16 21 15 Rate Blood Pressure 143/90 143/90 144/93 Blood Pressure [Left] O2 Sat by Pulse 100 100 100 Oximetry 05/04/21 05/04/2105/04/21 07:46 08:00 08:16 Pulse Rate 73 66 74 Respiratory 14 15 15 Rate Blood Pressure 144/93 142/93 142/93 Blood Pressure [Left] O2 Sat by Pulse 100 100 100 Oximetry 05/04/21 05/04/21 05/04/21 08:30 08:46 09:00 Pulse Rate 71 67 65 Respiratory 15 14 15 Rate Blood Pressure 134/87 134/87 146/99 Blood Pressure [Left] O2 Sat by Pulse 100 100 100 Oximetry 05/04/21 05/04/21 05/04/21 09:16 09:30 09:38 Pulse Rate 63 56 L Respiratory 13 13 16 Rate Blood Pressure 146/99 149/98 Blood Pressure [Left] O2 Sat by Pulse 100 100 Oximetry <SANDY CARTER - Last Filed: 05/04/21 10:43> ED Medical Decision Making - Lab Data Result diagrams: 05/04/21 04:11 05/04/21 04:11 Laboratory Tests 05/04/21 05/04/21 04:11 04:11 WBC 12.1 H RBC 4.82 Hgb 15.3 H Hct 45.7 H MCV 95 H MCH 32 MCHC 34 RDW 13.2 Plt Count 178 Lymph % (Auto) 19.9 [place] % (Auto) 3.9 Eos % (Auto) 0.3 Baso % (Auto) 0.5 Lymph # (Auto) 2.4 [place] # (Auto) 0.5 Eos # (Auto) 0.0 Baso # (Auto) 0.1 Seg Neutrophils % 75.4 H Seg Neutrophils # 9.2 H Sodium 140 Potassium 3.6 Chloride 99.9 Carbon Dioxide 17 L Anion Gap 27 BUN 9 Creatinine 0.6 L Estimated GFR > 60 BUN/Creatinine Ratio 15 Glucose 122 H Calcium 9.1 Magnesium 2.60 H - Radiology Data Radiology results: report reviewed (CT head), image reviewed (CT head) [facility] [address] [place] [address] Cat Scan Report Signed Patient: MARILY TYLER MR#: [id number] : 1995 Acct:[id number] Age/Sex: 25 / M ADM Date: 05/04/21 Loc: ED Attending Dr: Ordering Physician: CHRISTINE HERRERA MD Date of Service: 05/04/21 Procedure(s): CT head/brain wo con Accession Number(s): [id number] cc: CHRISTINE HERRERA MD CT HEAD WITHOUT CONTRAST INDICATION : Had seizure and fell striking left side of head. TECHNIQUE: Axial, coronal and sagittal CT imaging was performed from the skull apex through the skull base without contrast. All CT scans at this location are performed using CT dose reduction for ALARA by means of automated exposure control. COMPARISON: CT head without contrast from 02/24/2021 FINDINGS: PARENCHYMA: No mass, midline shift, hemorrhage, extraaxial collection or acute territorial infarction. VENTRICLES: Symmetric and normal in size. SOFT TISSUES: There is moderate left periorbital edema without other significant abnormality is of the orbits/soft tissues. BONES: No acute osseous abnormality. SINUSES: No significant abnormality. ADDITIONAL FINDINGS: None. IMPRESSION: 1. No acute intracranial abnormality. 2. Moderate left periorbital edema Signer Name: Han White MD Signed: 05/04/2021 4:57 AM Workstation Name: [id number] Transcribed By: MN Dictated By: Han White MD Electronically Authenticated By: Han White MD Signed Date/Time: 05/04/21456 DD/ 4 TD/TT: Print Cancel - Differential Diagnosis Seizure, closed head injury, ICH <CHRISTINE HERRERA - Last Filed: 05/04/21 05:22> - Lab Data Result diagrams: 05/04/21 04:11 05/04/21 04:11 - Radiology Data [facility] [address] [place] [address] Cat Scan Report Signed Patient: MARILY TYLER MR#: [id number] : 1995 Acct:[id number] Age/Sex: 25 / M ADM Date: 05/04/21 Loc: ED Attending Dr: Ordering Physician: CHRISTINE HERRERA MD Date of Service: 05/04/21 Procedure(s): CT head/brain wo con Accession Number(s): [id number] cc: CHRISTINE HERRERA MD CT HEAD WITHOUT CONTRAST INDICATION : Had seizure and fell striking left side of head. TECHNIQUE: Axial, coronal and sagittal CT imaging was performed from the skull apex through the skull base without contrast. All CT scans at this location are performed using CT dose reduction for ALARA by means of automated exposure control. COMPARISON: CT head without contrast from 02/24/2021 FINDINGS: PARENCHYMA: No mass, midline shift, hemorrhage, extraaxial collection or acute territorial infarction. VENTRICLES: Symmetric and normal in size. SOFT TISSUES: There is moderate left periorbital edema without other significant abnormality is of the orbits/soft tissues. BONES: No acute osseous abnormality. SINUSES: No significant abnormality. ADDITIONAL FINDINGS: None. IMPRESSION: 1. No acute intracranial abnormality. 2. Moderate left periorbital edema Signer Name: Han White MD Signed: 05/04/2021 4:57 AM Workstation Name: [id number] Transcribed By: MN Dictated By: Han White MD Electronically Authenticated By: Han White MD Signed Date/Time: 05/04/21456 DD/ 4 TD/TT: - Medical Decision Making Clinical impression: Status epilepticus. Patient still lethargic after receiving 4 mg of Ativan and Keppra load. Patient has repetitive speech. He states that "I am fine. I am fine." CT head negative for acute traumatic injury. Patient does have periorbital hematoma. Patient is admitted to the hospital service for further treatment observation. <SANDY CARTER - Last Filed: 05/04/21 10:43> Critical care attestation.: If time is entered above; I have spent that time in minutes in the direct care of this critically ill patient, excluding procedure time. <CHRISTINE HERRERA - Last Filed: 05/04/21 05:22> Critical care attestation.: If time is entered above; I have spent that time in minutes in the direct care of this critically ill patient, excluding procedure time. <SANDY CARTER - Last Filed: 05/04/21 10:43> ED Disposition <CHRISTINE HERRERA - Last Filed: 05/04/21 05:22> Is pt being admited?: Yes Does the pt Need Aspirin: No <SANDY CARTER - Last Filed: 05/04/21 10:43> Clinical Impression: Seizure, Status epilepticus Disposition: DC-09 OP ADMIT IP TO THIS HOSP Condition: Stable Additional Instructions: Return to the emergency department should you develop worsening symptoms, inability to tolerate food or liquids, high fever or any other concerns Prescriptions: levETIRAcetam [Keppra] 1,500 mg PO BID #470 ml
[2021-05-04 04:35] LABS: Basophils # (Auto) 0.1 K/mm3 (0.0-0.1); Basophils % (Auto) 0.5 % (0.0-1.8); Eosinophils % (Auto) 0.3 % (0.0-4.3); Hematocrit 45.7 % (35.5-45.6); Hemoglobin 15.3 gm/dl (11.8-15.2); Lymphocytes # (Auto) 2.4 K/mm3 (1.2-5.4); Lymphocytes % (Auto) 19.9 % (13.4-35.0); Mean Corpuscular HGB Conc 34 % (32-34); Mean Corpuscular Volume 95 fl (84-94); Monocytes # (Auto) 0.5 K/mm3 (0.0-0.8); Monocytes % (Auto) 3.9 % (0.0-7.3); Platelet Count 178 K/mm3 (140-440); Red Blood Count 4.82 M/mm3 (3.65-5.03); Red Cell Distribution Width 13.2 % (13.2-15.2)
[2021-05-04 04:56] LABS: Blood Urea Nitrogen 9 mg/dL (9-20); Calcium 9.1 mg/dL (8.4-10.2); Hemolysis Index 20
[2021-05-04 04:57] LABS: BUN/Creatinine Ratio 15
[2021-05-04] MEDS ORDERED: SODIUM CHLORIDE 0.9% 1000 ML 1,000 ML IV ONE (04:57)
--- NOTE | 2021-05-04 05:01 | Cat Scan Report ---
CT HEAD WITHOUT CONTRAST INDICATION : Had seizure and fell striking left side of head. TECHNIQUE: Axial, coronal and sagittal CT imaging was performed from the skull apex through the skul l base without contrast. All CT scans at this location are performed using CT dose reduction for ALA RA by means of automated exposure control. COMPARISON: CT head without contrast from 02/24/2021 FINDINGS: PARENCHYMA: No mass, midline shift, hemorrhage, extraaxial collection or acute territorial infarctio n. VENTRICLES: Symmetric and normal in size. SOFT TISSUES: There is moderate left periorbital edema without other significant abnormality is of t he orbits/soft tissues. BONES: No acute osseous abnormality. SINUSES: No significant abnormality. ADDITIONAL FINDINGS: None. IMPRESSION: 1. No acute intracranial abnormality. 2. Moderate left periorbital edema Signer Name: Han White MD Signed: 05/04/2021 4:57 AM Workstation Name: [id number]
--- NOTE | 2021-05-04 11:20 | History and Physical Report ---
History of Present Illness Chief complaint: He had a seizure today History of present illness: 25 YO Male with Seizure Disorder, Fragile X Syndrome, Mental Retardation presents to ED for evaluation. Pt unable to provide history, but history provided by patient family, who is available via telephone for interview. As per family, the patient experienced a witnessed seizure today which resulted in a fall. EMS was notified and upon arrival the patient was found to be in distress and actively undergoing seizure activity. The patient was subsequently transported to [facility] for further care and evaluation of the aforementioned symptoms. The patient was seen and evaluated in the emergency department. All lab and imaging studies reviewed. The patient was found to have status epilepticus and was treated with antiepileptic therapy. The patient was placed admitted to medical floor due to increased risk of worsening symptoms. No reports of fever, chills, chest pain, palpitation, productive cough, trauma, skin rash, recent ill contacts, known exposure to COVID-19. Patient family knowledges missed dose of Keppra therapy. Patient has diminished cognition but has a positive gag reflex and is able to protect his airway without difficulty at the time my evaluation. Prior admission on 09/13/2018 reviewed. All m edication listed at time of admission has been reconciled. Past History Past Medical History: seizures, other (See HPI) Past Surgical History: No surgical history, Other (Reviewed) Social history: single, lives with family. denies: smoking, alcohol abuse, prescription drug abuse Family history: hypertension Medications and Allergies Allergies Allergy/AdvReac Type Severity Reaction Status Date / Time No Known Allergies Allergy Unverified 03/22/16 10:33 Home Medications Medication Instructions Recorded Confirmed Last Taken Type levETIRAcetam [Keppra ORAL LIQ] 1,700 mg PO BID #1 bottle 03/22/16 09/13/18 09/12/18 Rx Ciprofloxacin HCl [Cipro] 500 mg PO BID #6 tablet 09/13/18 Unknown Rx Sennosides [Senna] 8.6 mg PO BID #60 tablet 09/13/18 Unknown Rx bisacodyL [Dulcolax suppos] 10 mg AL QDAY PRN #30 supp.rect 09/13/18 Unknown Rx polyethylene glycoL 3350 [Miralax 17 gm PO QDAY #30 packet 09/13/18 Unknown Rx 3350] levETIRAcetam [Keppra] 1,500 mg PO BID #470 ml 05/04/21 Unknown Rx Review of Systems ROS unobtainable: due to mental status Exam - Constitutional Vitals: Temp Pulse Resp BP Pulse Ox 71 16 150/102 98 05/04/21 10:46 05/04/21 10:46 05/04/21 10:46 05/04/21 10:46 General appearance: Present: mild distress - EENT Eyes: Present: PERRL ENT: hearing intact, clear oral mucosa - Neck Neck: Present: supple, normal ROM - Respiratory Respiratory effort: normal Respiratory: bilateral: CTA - Cardiovascular Heart Sounds: Present: S1 & S2. Absent: rub, click - Extremities Extremities: pulses symmetrical, No edema Peripheral Pulses: within normal limits - Abdominal General gastrointestinal: Present: soft, non-tender, non-distended, normal bowel sounds Male genitourinary: Present: normal - Integumentary Integumentary: Present: clear, warm, dry - Musculoskeletal Musculoskeletal: gait normal, strength equal bilaterally - Psychiatric Psychiatric: appropriate mood/affect, intact judgment & insight - Neurologic Neurologic: CNII-XII intact, moves all extremities Results - Labs CBC & Chem 7: 05/04/21 04:11 05/04/21 04:11 Labs: Abnormal lab results 05/04/21 05/04/21 Range/Units 04:11 04:11 WBC 12.1 H (4.5-11.0) K/mm3 Hgb 15.3 H (11.8-15.2) gm/dl Hct 45.7 H (35.5-45.6) % MCV 95 H (84-94) fl Seg Neutrophils % 75.4 H (40.0-70.0) % Seg Neutrophils # 9.2 H (1.8-7.7) K/mm3 Carbon Dioxide 17 L (22-30) mmol/L Creatinine 0.6 L (0.8-1.3) mg/dL Glucose 122 H (75-100) mg/dL Magnesium 2.60 H (1.7-2.3) mg/dL Assessment and Plan - Patient Problems (1) Status epilepticus Current Visit: Yes Status: Acute Plan to address problem: CT head, neuro check, seizure precaution, aspiration precautions, fall precautions, Keppra loading in ED, continue Keppra therapy twice daily, outpatient neurology follow-up. (2) Fragile X syndrome Current Visit: Yes Status: Acute Plan to address problem: Supportive care, fall precautions. Neurochecks. (3) DVT prophylaxis Current Visit: No Status: Acute Plan to address problem: SCD to bilateral lower extremities while in bed
[2021-05-04] MEDS ORDERED: ACETAMINOPHEN 325 MG TAB PO PRN (11:21)
[2021-05-04] MEDS ORDERED: ONDANSETRON 4 MG/2 ML INJ IV PRN (11:21)
[2021-05-04] MEDS ORDERED: oxyCODONE /ACETAMINOPHEN 5-325MG TAB PO PRN (11:21)
[2021-05-04] MEDS ORDERED: HYDROmorphone 1 MG/1 ML INJ IV PRN (11:21)
[2021-05-04] MEDS ORDERED: ALBUTEROL 2.5 MG/3 ML NEBU IH PRN (11:21)
[2021-05-04] MEDS ORDERED: SODIUM CHLORIDE 0.9% 1000 ML 1,000 ML IV SCH (12:30)
[2021-05-04] MEDS ORDERED: LEVETIRACETAM PO SCH (22:00)
[2021-05-04] MEDS: SENNOSIDES 8.6 MG TAB PO SCH (23:26)
[2021-05-04] MEDS: levETIRAcetam 500 MG/5 ML ORAL LIQD PO SCH (23:26)
[2021-05-05] MEDS ORDERED: hydrALAZINE 20 MG/1 ML INJ IV ONE (06:54)
--- NOTE | 2021-05-05 09:11 | Progress Note ---
Assessment and Plan Assessment and plan: (1) Status epilepticus Current Visit: Yes Status: Acute Plan to address problem: CT head, neuro check, seizure precaution, aspiration precautions, fall precautions, Keppra loading in ED, continue Keppra therapy twice daily, outpatient neurology follow-up. (2) Fragile X syndrome Current Visit: Yes Status: Acute Plan to address problem: Supportive care, fall precautions. Neurochecks. (3) DVT prophylaxis Current Visit: No Status: Acute Plan to address problem: SCD to bilateral lower extremities while in bed 05/05; I have seen and evaluated the patient. Patient did not have any seizure after admission. Patient was alert this morning. He ate his breakfast. I called his mother Klaudia and she told me that he had seizure because he ran out of his medications and patient will get his medications tomorrow from [place]. I called case management and discussed with her to give him 2 doses of medications, tonight and tomorrow does and he can go home and get his medications refills tomorrow. History Interval history: Patient was seen and evaluated this morning Patient was alert, he did not have any complaints Patient ate breakfast Hospitalist Physical - Physical exam Narrative exam: Not in cardiopulmonary distress. The patient appeared well nourished and normally developed. Vital signs as documented. Head exam is unremarkable. No scleral icterus . Neck is without jugular venous distension, thyromegaly, or carotid bruits. Lungs are clear to auscultation. Cardiac exam reveals regular rate and Rhythm. Abdominal exam reveals normal bowel sounds, nontender, no organomegaly. Extremities are nonedematous and both femoral and pedal pulses are normal. VICE PRESIDENT OF TALENT MANAGEMENT: Alert and oriented 3. No focal weakness. - Constitutional Vitals: Temp Pulse Resp BP Pulse Ox 98.4 F 64 20 174/100 100 05/05/21 05:51 05/05/21 05:51 05/05/21 05:51 05/05/21 05:51 05/05/21 05:51 General appearance: Present: mild distress Results - Labs CBC & Chem 7: 05/04/21 04:11 05/05/21 11:18 Labs: Laboratory Last Values WBC 12.1 K/mm3 (4.5-11.0) H 05/04/21 04:11 RBC 4.82 M/mm3 (3.65-5.03) 05/04/21 04:11 Hgb 15.3 gm/dl (11.8-15.2) H 05/04/21 04:11 Hct 45.7 % (35.5-45.6) H 05/04/21 04:11 MCV 95 fl (84-94) H 05/04/21 04:11 MCH 32 pg (28-32) 05/04/21 04:11 MCHC 34 % (32-34) 05/04/21 04:11 RDW 13.2 % (13.2-15.2) 05/04/21 04:11 Plt Count 178 K/mm3 (140-440) 05/04/21 04:11 Lymph % (Auto) 19.9 % (13.4-35.0) 05/04/21 04:11 Schuyler % (Auto) 3.9 % (0.0-7.3) 05/04/21 04:11 Eos % (Auto) 0.3 % (0.0-4.3) 05/04/21 04:11 Baso % (Auto) 0.5 % (0.0-1.8) 05/04/21 04:11 Lymph # (Auto) 2.4 K/mm3 (1.2-5.4) 05/04/21 04:11 Schuyler # (Auto) 0.5 K/mm3 (0.0-0.8) 05/04/21 04:11 Eos # (Auto) 0.0 K/mm3 (0.0-0.4) 05/04/21 04:11 Baso # (Auto) 0.1 K/mm3 (0.0-0.1) 05/04/21 04:11 Seg Neutrophils % 75.4 % (40.0-70.0) H 05/04/21 04:11 Seg Neutrophils # 9.2 K/mm3 (1.8-7.7) H 05/04/21 04:11 Sodium 140 mmol/L (137-145) 05/04/21 04:11 Potassium 3.6 mmol/L (3.6-5.0) 05/04/21 04:11 Chloride 99.9 mmol/L (98-107) 05/04/21 04:11 Carbon Dioxide 17 mmol/L (22-30) L 05/04/21 04:11 Anion Gap 27 mmol/L 05/04/21 04:11 BUN 9 mg/dL (9-20) 05/04/21 04:11 Creatinine 0.6 mg/dL (0.8-1.3) L 05/04/21 04:11 Estimated GFR > 60 ml/min 05/04/21 04:11 BUN/Creatinine Ratio 15 % 05/04/21 04:11 Glucose 122 mg/dL (75-100) H 05/04/21 04:11 Calcium 9.1 mg/dL (8.4-10.2) 05/04/21 04:11 Magnesium 2.60 mg/dL (1.7-2.3) H 05/04/21 04:11 Grover/IV: Voiding Method Toilet Active Medications - Current Medications Current Medications: Generic Name Dose Route Start Last Admin Trade Name Freq PRN Reason Stop Dose Admin Acetaminophen 650 mg 05/04/21 11:21 Acetaminophen 325 Mg Tab PO Q4H PRN Pain MILD(1-3)/Fever >100.5/LOPEZ Albuterol 2.5 mg 05/04/21 11:21 Albuterol 2.5 Mg/3 Ml Nebu IH Q4HRT PRN Shortness Of Breath Bisacodyl 10 mg 05/04/21 18:27 Bisacodyl 10 Mg Rect Supp NV QDAY PRN Constipation Hydromorphone HCl 0.5 mg 05/04/21 11:21 Hydromorphone 1 Mg/1 Ml Inj IV Q12H PRN Pain , Severe (7-10) Sodium Chloride 1,000 mls @ 42 mls/hr 05/04/21 12:30 Nacl 0.9% 1000 Ml IV DIRECT GENARO Levetiracetam 1,700 mg 05/04/21 22:00 05/04/21 23:26 Levetiracetam 500 Mg/5 Ml Oral Liqd PO 1,700 mg BID GENARO Administration Ondansetron HCl 4 mg 05/04/21 11:21 Ondansetron 4 Mg/2 Ml Inj IV Q8H PRN Nausea And Vomiting Oxycodone/Acetaminophen 1 tab 05/04/21 11:21 Oxycodone /Acetaminophen 5-325mg Tab PO Q12H PRN Pain, Moderate (4-6) Polyethylene Glycol 17 gm 05/05/21 10:00 Polyethylene Glycol 3350 17 Gm Powder PO QDAY GENARO Senna 8.6 mg 05/04/21 22:00 05/04/21 23:26 Sennosides 8.6 Mg Tab PO 8.6 mg BID GENARO Administration Sodium Chloride 10 ml 05/04/21 22:00 05/04/21 23:26 Sodium Chloride 0.9% 10 Ml Flush Syringe IV 10 ml BID GENARO Administration Sodium Chloride 10 ml 05/04/21 11:21 Sodium Chloride 0.9% 10 Ml Flush Syringe IV PRN PRN LINE FLUSH
[2021-05-05] MEDS: levETIRAcetam 500 MG/5 ML ORAL LIQD PO SCH ×2 (09:54→22:49)
[2021-05-05] MEDS: SENNOSIDES 8.6 MG TAB PO SCH ×2 (09:54→22:51)
[2021-05-05] MEDS: POLYETHYLENE GLYCOL 3350 17 GM POWDER PO SCH (09:54)
[2021-05-05 11:54] LABS: Alanine Aminotransferase 14 units/L (7-56); Albumin 4.1 g/dL (3.9-5); Blood Urea Nitrogen 8 mg/dL (9-20); Calcium 9.2 mg/dL (8.4-10.2); Hemolysis Index 2
[2021-05-05 11:56] LABS: BUN/Creatinine Ratio 13
[2021-05-05] MEDS ORDERED: POTASSIUM CHLORIDE ER 20 MEQ TAB PO ONE (13:30)
[2021-05-05 18:36] VITALS: BP 153/103
--- NOTE | 2021-05-06 08:40 | Discharge Summary ---
Providers - Providers Date of Admission: 05/05/21 16:30 Date of discharge: 05/06/21 Attending physician: MILADIS DURANT MD Primary care physician: OCEAN EXPORT COORDINATOR Hospitalization Reason for admission: Seizure episode Condition: Stable Hospital course: History of present illness: 25 YO Male with Seizure Disorder, Fragile X Syndrome, Mental Retardation presents to ED for evaluation. Pt unable to provide history, but history provided by patient family, who is available via telephone for interview. As per family, the patient experienced a witnessed seizure today which resulted in a fall. EMS was notified and upon arrival the patient was found to be in distress and actively undergoing seizure activity. The patient was subsequently transported to [facility] for further care and evaluation of the aforementioned symptoms. The patient was seen and evaluated in the emergency department. All lab and imaging studies reviewed. The patient was found to have status epilepticus and was treated with antiepileptic therapy. The patient was placed admitted to medical floor due to increased risk of worsening symptoms. No r eports of fever, chills, chest pain, palpitation, productive cough, trauma, skin rash, recent ill contacts, known exposure to COVID-19. Patient family knowledges missed dose of Keppra therapy. Patient has diminished cognition but has a positive gag reflex and is able to protect his airway without difficulty at the time my evaluation. Prior admission on 09/13/2018 reviewed. All medication listed at time of admission has been reconciled. Hospital course (1) Status epilepticus Current Visit: Yes Status: Acute Plan to address problem: CT head, neuro check, seizure precaution, aspiration precautions, fall precautions, Keppra loading in ED, continue Keppra therapy twice daily, outpatie nt neurology follow-up. (2) Fragile X syndrome Current Visit: Yes Status: Acute Plan to address problem: Supportive care, fall precautions. Neurochecks. (3) DVT prophylaxis Current Visit: No Status: Acute Plan to address problem: SCD to bilateral lower extremities while in bed 05/05; I have seen and evaluated the patient. Patient did not have any seizure after admission. Patient was alert this morning. He ate his breakfast. I called his mother Klaudia and she told me that he had seizure because he ran out of his medications and patient will get his medications tomorrow from Medicaid/Medicare. I called case management and discussed with her to give him 2 doses of medications, tonight and tomorrow does and he can go home and get his medications refills tomorrow. Patient was seen and evaluated this morning; patient does not have any seizures after admission. Patient was alert and awake ate breakfast and doing well. Management plan was discussed with his mother over the phone yesterday and she told me that he will get his Keppra refilled today. Patient is stable for discharge. Disposition: DC-01 TO HOME OR SELFCARE Final Discharge Diagnosis (Prints w/discharge instructions): Seizure. History of seizure disorder. Fragile X syndrome Time spent for discharge: 25 minutes - Discharge Diagnoses (1) Fragile X syndrome Status: Acute (2) Seizure Status: Acute (3) Status epilepticus Status: Acute Core Measure Documentation - Palliative Care Palliative Care/ Comfort Measures: Not Applicable - Core Measures Any of the following diagnoses?: none Exam - Physical Exam Narrative exam: Not in cardiopulmonary distress. The patient appeared well nourished and normally developed. Vital signs as documented. Head exam is unremarkable. No scleral icterus . Neck is without jugular venous distension, thyromegaly, or carotid bruits. Lungs are clear to auscultation. Cardiac exam reveals regular rate and Rhythm. Abdominal exam reveals normal bowel sounds, nontender, no organomegaly. Extremities are nonedematous and both femoral and pedal pulses are normal. ASSOCIATE MEDIA DIRECTOR: Alert and oriented 3. No focal weakness. - Constitutional Vitals: Temp Pulse Resp BP Pulse Ox 97.6 F 80 16 153/103 96 05/05/21 16:00 05/05/21 16:00 05/05/21 16:00 05/05/21 16:00 05/06/21 02:00 Plan Activity: no restrictions Weight Bearing Status: Full Weight Bearing Diet: regular Follow up with: PRIMARY CAREMD [Primary Care Provider] - 7 Days
[2021-05-06] MEDS ORDERED: POTASSIUM CHLORIDE ER 20 MEQ TAB PO NR (09:00)
[2021-05-06] MEDS: POLYETHYLENE GLYCOL 3350 17 GM POWDER PO SCH (09:00)
[2021-05-06] MEDS: SENNOSIDES 8.6 MG TAB PO SCH (09:01)
[2021-05-06] MEDS: levETIRAcetam 500 MG/5 ML ORAL LIQD PO SCH (09:02)
== END 2021-05-06 12:46 | disposition home or self-care (01) | DRG 101 ==
LOC: ED 03:47 → 4A 11:21 → 3A 23:45 → OBSVTOIN 05-05 16:30
PROVIDERS: ADMIT Internal Medicine; ATTEND Internal Medicine
DX: G40.901 Epilepsy, unspecified, not intractable, with status epilepticus (principal); Q99.2 Fragile X chromosome; F79 Unspecified intellectual disabilities; Z79.899 Other long term (current) drug therapy; Z79.891 Long term (current) use of opiate analgesic; Z79.01 Long term (current) use of anticoagulants; Z82.49 Family history of ischemic heart disease and other diseases of the circulatory system
CPT/HCPCS: 36415; 70450; 80048; 80053; 83735; 84132; 85025; 96365; 96366; 96375; G0378; J0360; J1953; J7030

== ENCOUNTER 2021-05-27 08:36 | Inpatient (IN) | payer MEDICAID ==
[2021-05-27] MEDS ORDERED: LORazepam 2 MG/ML VIAL ONE (08:41)
[2021-05-27] MEDS ORDERED: SODIUM CHLORIDE 0.9% 1000 ML 1,000 ML IV ONE (08:43)
[2021-05-27] MEDS ORDERED: levETIRAcetam 1000 MG/NS 0.75% 1,000 MG/100 ML BAG IV ONE (08:43)
--- NOTE | 2021-05-27 08:47 | Emergency Department Report ---
ED Seizure HPI - General Chief Complaint: Seizure Stated Complaint: SEIZURE Time Seen by Provider: 05/27/21 08:43 Source: EMS - History of Present Illness Initial Comments: Patient is 25 years old male with history of seizure. Patient brought to the emergency room via EMS from home for evaluation of 3 episodes of generalized tonic-clonic seizure at home witnessed by his mother. Mother stated that darlene macias is compliant with his medication. Patient is on Keppra. Upon arrival to the ER patient had another generalized tonic-clonic seizure. Patient received Versed 5mg by EMS. Patient received another 2 mg of Ativan in the ER that reported his fourth seizure. Patient started on Keppra 1 g IV. MD Complaint: seizure -: Sudden Description of Episode: loss of consciousness, tonic-clonic movement, bladder incontinence, post-event confusion Witnessed:: Yes Trauma: No Seizure History: known seizure disorder Place: home Possible Precipitating Event: none Treatments Prior to Arrival: benzodiazepines - Related Data Previous Rx's Medication Instructions Recorded Last Taken Type levETIRAcetam [Keppra ORAL LIQ] 1,700 mg PO BID #1 bottle 03/22/16 09/12/18 Rx Sennosides [Senna] 8.6 mg PO BID #60 tablet 09/13/18 Unknown Rx bisacodyL [Dulcolax suppos] 10 mg NE QDAY PRN #30 supp.rect 09/13/18 Unknown Rx polyethylene glycoL 3350 [Miralax 17 gm PO QDAY #30 packet 09/13/18 Unknown Rx 3350] Allergies Allergy/AdvReac Type Severity Reaction Status Date / Time No Known Allergies Allergy Unverified 03/22/16 10:33 ED Review of Systems ROS: Stated complaint: SEIZURE Other details as noted in HPI Comment: All other systems reviewed and negative Constitutional: denies: chills, fever Respiratory: denies: cough, shortness of breath Cardiovascular: denies: chest pain, palpitations Gastrointestinal: denies: abdominal pain, nausea, vomiting Musculoskeletal: denies: back pain Neurological: denies: headache, weakness ED Past Medical Hx - Past Medical History 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) Additional medical history: MR and seizures - Social History Smoking Status: Never Smoker - Medications Home Medications: Home Medications Medication Instructions Recorded Confirmed Last Taken Type levETIRAcetam [Keppra ORAL LIQ] 1,700 mg PO BID #1 bottle 03/22/16 09/13/18 09/12/18 Rx Sennosides [Senna] 8.6 mg PO BID #60 tablet 09/13/18 Unknown Rx bisacodyL [Dulcolax suppos] 10 mg NE QDAY PRN #30 supp.rect 09/13/18 Unknown Rx polyethylene glycoL 3350 [Miralax 17 gm PO QDAY #30 packet 09/13/18 Unknown Rx 3350] ED Physical Exam - General General appearance: postictal - Head Head exam: Present: atraumatic, normocephalic, normal inspection - Eye Eye exam: Present: normal appearance, PERRL - ENT ENT exam: Present: normal exam, normal orophraynx, mucous membranes moist - Neck Neck exam: Present: normal inspection - Respiratory Respiratory exam: Present: normal lung sounds bilaterally - Cardiovascular Cardiovascular Exam: Present: regular rate, normal rhythm, normal heart sounds - GI/Abdominal GI/Abdominal exam: Present: soft, normal bowel sounds. Absent: distended, tenderness, guarding, rebound, rigid, organomegaly, mass, bruit, pulsatile mass, hernia - Extremities Exam Extremities exam: Present: normal inspection, full ROM, normal capillary refill. Absent: tenderness, pedal edema, joint swelling, calf tenderness - Back Exam Back exam: Present: normal inspection, full ROM. Absent: CVA tenderness (R) - Neurological Exam Neurological exam: Present: alert, altered - Psychiatric Psychiatric exam: Present: normal mood - Skin Skin exam: Present: warm, intact, normal color ED Course Vital Signs 05/27/21 05/27/21 05/27/21 08:54 09:21 11:09 Temperature 97.8 F Pulse Rate 130 H 84 Respiratory 20 16 Rate Blood Pressure 166/84 Blood Pressure 119/93 [Left] O2 Sat by Pulse 96 96 96 Oximetry ED Medical Decision Making - Lab Data Result diagrams: 05/27/21 08:49 05/27/21 08:49 - EKG Data -: EKG Interpreted by Md EKG shows normal: sinus rhythm Rate: tachycardia - EKG Data Interpretation: no acute changes - Radiology Data Radiology results: report reviewed - Medical Decision Making Patient is 25 years old male with history of seizure. Patient brought to the emergency room via EMS from home for evaluation of 3 episodes of generalized tonic-clonic seizure at home witnessed by his mother. Mother stated that patient is compliant with his medication. Patient is on Keppra. Upon arrival to the ER patient had another generalized tonic-clonic seizure. Patient received Versed 5mg by EMS. Patient received another 2 mg of Ativan in the ER that reported his fourth seizure. Patient started on Keppra 1 g IV. Labs reviewed and is unremarkable. EKG shows sinus tachycardia. CT brain is negative for acute finding. I discussed the patient with Dr. Patterson, he agreed to admit the patient to the hospital for status epilepticus. Critical Care Time: Yes Critical care time in (mins) excluding proc time.: 30 Critical care attestation.: If time is entered above; I have spent that time in minutes in the direct care of this critically ill patient, excluding procedure time. ED Disposition Clinical Impression: Status epilepticus Disposition: ADMITTED INPATIENT Is pt being admited?: No Condition: Stable
[2021-05-27] MEDS ORDERED: LORazepam 2 MG/ML VIAL IV ONE (08:49)
[2021-05-27 09:11] LABS: Basophils # (Auto) 0.1 K/mm3 (0.0-0.1); Basophils % (Auto) 0.6 % (0.0-1.8); Eosinophils # (Auto) 0.1 K/mm3 (0.0-0.4); Eosinophils % (Auto) 0.8 % (0.0-4.3); Hematocrit 44.4 % (35.5-45.6); Lymphocytes # (Auto) 3.8 K/mm3 (1.2-5.4); Lymphocytes % (Auto) 36.6 % (13.4-35.0); Mean Corpuscular HGB Conc 34 % (32-34); Mean Corpuscular Volume 95 fl (84-94); Monocytes # (Auto) 0.4 K/mm3 (0.0-0.8); Monocytes % (Auto) 3.4 % (0.0-7.3); Platelet Count 190 K/mm3 (140-440); Red Blood Count 4.68 M/mm3 (3.65-5.03); Red Cell Distribution Width 13.1 % (13.2-15.2)
--- NOTE | 2021-05-27 09:15 | Cat Scan Report ---
CT head/brain wo con INDICATION: Seizure/AMS. TECHNIQUE: Routine CT head. All CT scans at this location are performed using CT dose reduction for A ALFA by means of automated exposure control. COMPARISON: May 04 2021 FINDINGS: Intracranial: Cruz-white matter differentiation is maintained. No intracranial hemorrhage. No extra a xial collection. No hydrocephalus. No herniation. Retrocerebellar cystic space, most consistent with a benign arachnoid cyst. Sinuses: Paranasal sinuses and mastoid air cells are essentially clear. Orbits: Globes are intact. Calvarium: No acute fracture. IMPRESSION: 1. No acute intracranial abnormality. Signer Name: Scott Jarrett MD Signed: 05/27/2021 9:11 AM Workstation Name: [id number]
[2021-05-27 09:44] LABS: Alanine Aminotransferase 15 units/L (7-56); Albumin 4.7 g/dL (3.9-5); BUN/Creatinine Ratio 10; Blood Urea Nitrogen 8 mg/dL (9-20); Calcium 8.6 mg/dL (8.4-10.2); Hemolysis Index 13
[2021-05-27 09:58] LABS: Bilirubin,Direct < 0.2 mg/dL (0-0.2)
[2021-05-27 10:18] LABS: Amphetamine Screen,Urine PRESUMPTIVE NEGATIVE; Benzodiazepines Screen,Urine PRESUMPTIVE POSITIVE; Cannabinoid Screen,Urine PRESUMPTIVE NEGATIVE; Cocaine Screen,Urine PRESUMPTIVE NEGATIVE; Methadone Screen,Urine PRESUMPTIVE NEGATIVE; Opiate Screen,Urine PRESUMPTIVE NEGATIVE
--- NOTE | 2021-05-27 12:33 | History and Physical Report ---
Medications and Allergies Allergies Allergy/AdvReac Type Severity Reaction Status Date / Time No Known Allergies Allergy Unverified 03/22/16 10:33 Home Medications Medication Instructions Recorded Confirmed Last Taken Type levETIRAcetam [Keppra ORAL LIQ] 1,700 mg PO BID #1 bottle 03/22/16 09/13/18 09/12/18 Rx Sennosides [Senna] 8.6 mg PO BID #60 tablet 09/13/18 Unknown Rx bisacodyL [Dulcolax suppos] 10 mg [place] QDAY PRN #30 supp.rect 09/13/18 Unknown Rx polyethylene glycoL 3350 [Miralax 17 gm PO QDAY #30 packet 09/13/18 Unknown Rx 3350] Exam - Constitutional Vitals: Temp Pulse Resp BP Pulse Ox 97.8 F 63 16 142/95 100 05/27/21 08:54 05/27/21 12:27 05/27/21 12:27 05/27/21 12:27 05/27/21 12:27 Results - Labs CBC & Chem 7: 05/27/21 08:49 05/27/21 08:49 Labs: Abnormal lab results 05/27/21 05/27/21 Range/Units 08:49 08:49 MCV 95 H (84-94) fl RDW 13.1 L (13.2-15.2) % Lymph % (Auto) 36.6 H (13.4-35.0) % Potassium 3.1 L (3.6-5.0) mmol/L Carbon Dioxide 11 L (22-30) mmol/L BUN 8 L (9-20) mg/dL Glucose 136 H (75-100) mg/dL
--- NOTE | 2021-05-27 12:43 | History and Physical Report ---
History of Present Illness Chief complaint: He had at least 3 seizures this morning History of present illness: 25 YO Male with Seizure Disorder, Fragile X Syndrome, Mental Retardation presents to ED for evaluation. Pt unable to provide history, but history provided by patient family, who is available via telephone for interview. As per mother, the patient experienced at least 3 witnessed seizures this morning. EM S was notified and upon arrival the patient was found to be in distress and actively undergoing seizure activity. The patient was subsequently transported to [facility] for further care and evaluation of the aforementioned symptoms. The patient was seen and evaluated in the emergency department. All lab and imaging studies reviewed. The patient was found to have status epilepticus and was treated with antiepileptic therapy. The patient was admitted to medical floor due to increased risk of worsening symptoms. No reports of fever, chills, chest pain, palpitation, productive cough, trauma, skin rash, recent ill contacts, known exposure to COVID-19. Patient mother reports compliance with medical therapy. Patient has diminished cognition but has a positive gag reflex and is able to protect his airway without difficulty at the time my evaluation. Prior admission on 04/14/2021 reviewed. All medication listed at time of admission has been reconciled. Past History Past Medical History: seizures, other (See HPI) Past Surgical History: No surgical history, Other (Reviewed) Social history: single. denies: smoking, alcohol abuse, prescription drug abuse Family history: hypertension Medications and Allergies Allergies Allergy/AdvReac Type Severity Reaction Status Date / Time No Known Allergies Allergy Unverified 03/22/16 10:33 Home Medications Medication Instructions Recorded Confirmed Last Taken Type levETIRAcetam [Keppra ORAL LIQ] 1,700 mg PO BID #1 bottle 03/22/16 09/13/18 09/12/18 Rx Sennosides [Senna] 8.6 mg PO BID #60 tablet 09/13/18 Unknown Rx bisacodyL [Dulcolax suppos] 10 mg [place] QDAY PRN #30 supp.rect 09/13/18 Unknown Rx polyethylene glycoL 3350 [Miralax 17 gm PO QDAY #30 packet 09/13/18 Unknown Rx 3350] Review of Systems ROS unobtainable: due to mental status Exam - Constitutional Vitals: Temp Pulse Resp BP Pulse Ox 97.8 F 63 16 142/95 100 05/27/21 08:54 05/27/21 12:27 05/27/21 12:27 05/27/21 12:27 05/27/21 12:27 General appearance: Present: mild distress - EENT Eyes: Present: PERRL ENT: hearing intact, clear oral mucosa - Neck Neck: Present: supple, normal ROM - Respiratory Respiratory effort: normal Respiratory: bilateral: CTA - Cardiovascular Heart Sounds: Present: S1 & S2. Absent: rub, click - Extremities Extremities: pulses symmetrical, No edema Peripheral Pulses: within normal limits - Abdominal General gastrointestinal: Present: soft, non-tender, non-distended, normal bowel sounds Male genitourinary: Present: normal - Integumentary Integumentary: Present: clear, warm, dry - Musculoskeletal Musculoskeletal: generalized weakness - Psychiatric Psychiatric: no appropriate mood/affect, no intact judgment & insight, no memory intact - Neurologic Neurologic: CNII-XII intact, no focal deficits, moves all extremities, no gait normal Results - Labs CBC & Chem 7: 05/27/21 08:49 05/27/21 08:49 Labs: Abnormal lab results 05/27/21 05/27/21 Range/Units 08:49 08:49 MCV 95 H (84-94) fl RDW 13.1 L (13.2-15.2) % Lymph % (Auto) 36.6 H (13.4-35.0) % Potassium 3.1 L (3.6-5.0) mmol/L Carbon Dioxide 11 L (22-30) mmol/L BUN 8 L (9-20) mg/dL Glucose 136 H (75-100) mg/dL Assessment and Plan - Patient Problems (1) Status epilepticus Current Visit: Yes Status: Acute Plan to address problem: Keppra therapy, benzodiazepine therapy, seizure precautions, aspiration precautions, fall precautions, supportive care. (2) Encephalopathy Current Visit: No Status: Acute Plan to address problem: CTA, neuro check, seizure precaution, aspiration precaution, fall precautions, (3) Fragile X syndrome Current Visit: No Status: Acute Plan to address problem: Supportive care, (4) DVT prophylaxis Current Visit: No Status: Acute Plan to address problem: Supportive care, SCD to bilateral lower extremities while in bed (5) Advance care planning Current Visit: Yes Status: Acute Plan to address problem: Disease education conducted, care plan discussed, diagnoses discussed, prognosis discussed, patient is full code, patient mother knowledges understanding and agreement with care plan, +30 minutes.
--- NOTE | 2021-05-27 13:26 | Electrocardiograph Report ---
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
[2021-05-27] MEDS ORDERED: SODIUM CHLORIDE 0.9% 1000 ML 1,000 ML IV SCH (13:30)
[2021-05-27] MEDS ORDERED: ONDANSETRON 4 MG/2 ML INJ IV PRN (13:30)
[2021-05-27] MEDS ORDERED: oxyCODONE /ACETAMINOPHEN 5-325MG TAB PO PRN (13:30)
[2021-05-27] MEDS ORDERED: ACETAMINOPHEN 325 MG TAB PO PRN (13:30)
[2021-05-27] MEDS ORDERED: ALBUTEROL 2.5 MG/3 ML NEBU IH PRN (13:30)
[2021-05-27] MEDS ORDERED: HYDROmorphone 1 MG/1 ML INJ IV PRN (13:30)
[2021-05-27] MEDS ORDERED: LORazepam 2 MG/ML VIAL IV PRN (19:00)
[2021-05-27] MEDS ORDERED: LEVETIRACETAM PO SCH (22:00)
[2021-05-28] MEDS: levETIRAcetam 500 MG/5 ML ORAL LIQD PO SCH ×3 (01:25→22:44)
[2021-05-28] MEDS: SENNOSIDES 8.6 MG TAB PO SCH ×2 (02:56→22:45)
[2021-05-28 07:35] LABS: Alanine Aminotransferase 9 units/L (7-56); Blood Urea Nitrogen 12 mg/dL (9-20); Hemolysis Index 12
[2021-05-28 07:44] LABS: BUN/Creatinine Ratio 17
[2021-05-28] MEDS ORDERED: POLYETHYLENE GLYCOL 3350 17 GM POWDER PO SCH (10:00)
[2021-05-28] MEDS ORDERED: POTASSIUM CHLORIDE ER 20 MEQ TAB PO ONE (11:14)
--- NOTE | 2021-05-28 11:29 | Consultation ---
History of Present Illness Consult date: 05/28/21 Reason for Consult: Recurrent seizure X3 times today History of present illness: He had at least 3 seizures this morning History of present illness: 25 YO Male with Seizure Disorder, Fragile X Syndrome, Mental Retardation presents to ED for evaluation. Pt unable to provide history, but history provided by patient family, who is available via telephone for interview. As per mother, the patient experienced at least 3 witnessed seizures this morning. EMS was notified and upon arrival the patient was found to be in distress and actively undergoing seizure activity. The patient was subsequently transported to [facility] for further care and evaluation of the aforementioned symptoms. The patient was seen and evaluated in the emergency department. All lab and imaging studies reviewed. The patient was found to have status epilepticus and was treated with antiepileptic therapy. The patient was admitted to medical floor due to increased risk of worsening symptoms. No reports of fever, chills, chest pain, palpitation, productive cough, trauma, skin rash, recent ill contacts, known exposure to COVID-19. Patient mother reports compliance with medical therapy. Patient has diminished cognition but has a positive gag reflex and is able to protect his airway without difficulty at the time my evaluation. Prior admission on 04/14/2021 reviewed. All medication listed at time of admission has been reconciled. Past History Past Medical History: seizures, other (See HPI) Past Surgical History: No surgical history, Other (Reviewed) Social history: single. denies: smoking, alcohol abuse, prescription drug abuse Family history: hypertension Medications and Allergies Allergies Allergy/AdvReac Type Severity Reaction Status Date / Time No Known Allergies Allergy Unverified 03/22/16 10:33 Home Medications Medication Instructions Recorded Confirmed Last Taken Type levETIRAcetam [Keppra ORAL LIQ] 1,700 mg PO BID #1 bottle 03/22/16 09/13/18 09/12/18 Rx Sennosides [Senna] 8.6 mg PO BID #60 tablet 09/13/18 Unknown Rx bisacodyL [Dulcolax suppos] 10 mg [place] QDAY PRN #30 supp.rect 09/13/18 Unknown Rx polyethylene glycoL 3350 [Miralax 17 gm PO QDAY #30 packet 09/13/18 Unknown Rx 3350] Review of Systems ROS unobtainable: due to mental status Past History Past Medical History: seizures, other (See HPI) Past Surgical History: No surgical history, Other (Reviewed) Social history: single. denies: smoking, alcohol abuse, prescription drug abuse Family history: hypertension Medications and Allergies Allergies Allergy/AdvReac Type Severity Reaction Status Date / Time No Known Allergies Allergy Unverified 03/22/16 10:33 Home Medications Medication Instructions Recorded Confirmed Last Taken Type levETIRAcetam [Keppra ORAL LIQ] 1,700 mg PO BID #1 bottle 03/22/16 09/13/18 09/12/18 Rx Sennosides [Senna] 8.6 mg PO BID #60 tablet 09/13/18 Unknown Rx bisacodyL [Dulcolax suppos] 10 mg [place] QDAY PRN #30 supp.rect 09/13/18 Unknown Rx polyethylene glycoL 3350 [Miralax 17 gm PO QDAY #30 packet 09/13/18 Unknown Rx 3350] Active Meds: Active Medications Acetaminophen (Acetaminophen 325 Mg Tab) 650 mg PO Q4H PRN PRN Reason: Pain MILD(1-3)/Fever >100.5/LOPEZ Albuterol (Albuterol 2.5 Mg/3 Ml Nebu) 2.5 mg IH Q4HRT PRN PRN Reason: Shortness Of Breath Bisacodyl (Bisacodyl 10 Mg Rect Supp) 10 mg [place] QDAY PRN PRN Reason: Constipation Hydromorphone HCl (Hydromorphone 1 Mg/1 Ml Inj) 0.5 mg IV Q12H PRN PRN Reason: Pain , Severe (7-10) Sodium Chloride (Nacl 0.9% 1000 Ml) 1,000 mls @ 42 mls/hr IV DIRECT GENARO Levetiracetam (Levetiracetam 500 Mg/5 Ml Oral Liqd) 1,700 mg PO BID GENARO Last Admin: 05/28/21 09:55 Dose: 1,700 mg Documented by: Lorazepam (Lorazepam 2 Mg/Ml Vial) 2 mg IV Q8H PRN PRN Reason: Seizures Ondansetron HCl (Ondansetron 4 Mg/2 Ml Inj) 4 mg IV Q8H PRN PRN Reason: Nausea And Vomiting Oxycodone/Acetaminophen (Oxycodone /Acetaminophen 5-325mg Tab) 1 tab PO Q12H PRN PRN Reason: Pain, Moderate (4-6) Polyethylene Glycol (Polyethylene Glycol 3350 17 Gm Powder) 17 gm PO QDAY [facility] Senna (Sennosides 8.6 Mg Tab) 8.6 mg PO BID [facility] Last Admin: 05/28/21 02:56 Dose: Not Given Documented by: Sodium Chloride (Sodium Chloride 0.9% 10 Ml Flush Syringe) 10 ml IV BID [facility] Last Admin: 05/28/21 09:55 Dose: 10 ml Documented by: Sodium Chloride (Sodium Chloride 0.9% 10 Ml Flush Syringe) 10 ml IV PRN PRN PRN Reason: LINE FLUSH Physical Examination - Vital Signs Vital Signs: Vital Signs Temp Pulse Resp BP Pulse Ox 97.8 F 130 H 20 166/84 96 05/27/21 08:54 05/27/21 08:54 05/27/21 08:54 05/27/21 08:54 05/27/21 08:54 - Constitutional General appearance: comfortable - EENT EENT: Present: PERRL, mucous membranes moist - Respiratory Respiratory: Present: chest non-tender, lungs clear, rhonchi - Cardiovascular Cardiovascular: Present: regular rate, normal S1, normal S2 Extremities: Present: no peripheral edema bilatateraly, no clubbing, cyanosis - Gastrointestinal Gastrointestinal: Present: normoactive bowel sounds - Integumentary Integumentary: Present: normal - Neurologic Cranial nerve examination: PERRL, EOMI Speech examination: other (seems to follow command no clear speech out put ) Detailed motor examination: grossly full strength in Results - Laboratory Findings CBC and BMP: 05/27/21 08:49 05/28/21 05:59 Abnormal Lab Findings: Abnormal Labs 05/27/21 05/27/21 05/28/21 08:49 08:49 05:59 MCV 95 H RDW 13.1 L Lymph % (Auto) 36.6 H Potassium 3.1 L 3.1 L Chloride 107.4 H Carbon Dioxide 11 L BUN 8 L Creatinine 0.7 L Glucose 136 H Assessment and Plan Assessment and Plan #this is 25 ys old male with hx of Fragil X syndrom and seizure presented today with recurrent seizure noted by family he is compling with medication as per mom -Ct brain is unremarkable -EEG is pending -UDS is positive for Benzo -pt. is on Keppra 1700 mg liq. bid # Encephalopathy -CTA, neuro check, seizure precaution, aspiration precaution, fall precautions, # Fragile X syndrome -Supportive care, # DVT prophylaxis -Supportive care, SCD to bilateral lower extremities while in bed # Advance care planning -Disease education conducted, care plan discussed, diagnoses discussed, prognos is discussed, patient is full code, patient mother knowledges understanding and agreement with care plan, +30 minutes. PLAN 1-seizure precaution 2- EEG today 3- Ativan 1 mg prn Iv for seizure 4- R/O electrolytes abnormality and or underlying infection 5- Add Vimpat 50 mg bid Liquid form 6- Neurology follow up on discharge 7- send for keppra level ? to confirm compliance with medications will follow
--- NOTE | 2021-05-28 15:08 | Progress Note ---
Assessment and Plan -- Status epilepticus cont Keppra therapy, benzodiazepine therapy as needed, cont seizure precautions, aspiration precautions, fall precautions, supportive care. consulted neuro, ordered EEG -- Encephalopathy due to post ictal, cont to monitor -- Fragile X syndrome, Supportive care, --hypokalemia, replete -- DVT prophylaxis Supportive care, SCD to bilateral lower extremities while in bed -- Full code Daily clinical course: 05/28/21: Continue Keppra twice daily, added Vimpat by neurology, EEG pending. Assess for any underlying infection, CT head without acute process. Continue to follow clinically. Subjective Date of service: 05/28/21 Interval history: Patient seen and examined. Medical records and medication list reviewed. No acute event overnight noted by the RN. Patient denies any chest pain or difficulty breathing. Patient is tolerating diet. Discussed plan of care at bedside with patient. Objective - Exam Narrative Exam: GENERAL: well-developed and well-nourished AAM lying on bed appeared to be in no discomfort. HEENT: Normocephalic. Atraumatic. No conjunctival congestion or icterus. Patient has moist mucous membranes. NECK: Supple. Trachea midline. CHEST/LUNGS: Clear to auscultated bilaterally, breathing nonlabored. No wheezes crackles or rhonchi. HEART/CARDIOVASCULAR: Regular in rate and rhythm. S1 and S2 positive. ABDOMEN: Abdomen is soft, nontender. Patient has normal bowel sounds. SKIN: There is no rash. Warm and dry. NEURO: No focal motor deficit. Follows command. MUSCULOSKELETAL: No joint effusion or tenderness. EXTRIMITY: No edema, no cyanosis or clubbing. PSYCH: Cooperative. - Constitutional Vitals: Vital Signs - 12hr 05/28/21 06:00 Pulse Rate 64 Respiratory 18 Rate Blood Pressure 161/72 [Left] O2 Sat by Pulse 100 Oximetry - Labs CBC & Chem 7: 05/27/21 08:49 05/29/21 05:36 Labs: Abnormal lab results 05/28/21 Range/Units 05:59 Potassium 3.1 L (3.6-5.0) mmol/L Chloride 107.4 H (98-107) mmol/L Creatinine 0.7 L (0.8-1.3) mg/dL
[2021-05-28] MEDS: amLODIPine 10 MG TAB PO SCH (16:57)
[2021-05-28] MEDS: POTASSIUM CHLORIDE 30 MEQ in D5W/0.9% NACL 1,000 ML IV SCH (16:57)
[2021-05-28] MEDS: LACOSAMIDE 50 MG TAB PO SCH (22:45)
[2021-05-29 06:35] LABS: Blood Urea Nitrogen 7 mg/dL (9-20); Calcium 8.7 mg/dL (8.4-10.2); Hemolysis Index 11
[2021-05-29 06:36] LABS: BUN/Creatinine Ratio 18
[2021-05-29] MEDS: POTASSIUM CHLORIDE 30 MEQ in D5W/0.9% NACL 1,000 ML IV SCH (06:53)
--- NOTE | 2021-05-29 10:16 | Progress Note ---
Assessment and Plan Assessment and Plan #this is 25 ys old male with hx of Fragil X syndrom and seizure presented today with recurrent seizure noted by family he is compling with medication as per mom -Ct brain is unremarkable -EEG is remarkable for diffuse slowing and recurrent jenkins on right mid temporal T4 -UDS is positive for Benzo -pt. is on Keppra 1700 mg liq. bid -Vimpat 50 mg Bid is added tolerated well # Encephalopathy -CTA, neuro check, seizure precaution, aspiration precaution, fall precautions, # Fragile X syndrome -Supportive care, # DVT prophylaxis -Supportive care, SCD to bilateral lower extremities while in bed # Advance care planning -Disease education conducted, care plan discussed, diagnoses discussed, prognosis discussed, patient is full code, patient mother knowledges understanding and agreement with care plan, +30 minutes. PLAN 1-seizure precaution 2- Ativan 1 mg prn Iv for seizure 3- R/O electrolytes abnormality and or underlying infection 4- Add Vimpat 50 mg bid 6- Neurology follow up on discharge 7- send for keppra level ? to confirm compliance with medications will sign off..... Subjective Date of service: 05/29/21 Principal diagnosis: recurrent seizure Interval history: pt. is doing well today sitting in bed seems happy dancing with his hand follow simple command had his breakfast today no focal weakness No seizure tolerated Vimpat well Objective - Vital Sign Vital Signs - 12hr 05/28/21 05/29/21 05/29/21 23:31 02:00 04:28 Temperature 97.7 F 97.5 F L Pulse Rate 67 67 68 Respiratory 18 18 Rate Blood Pressure 138/93 133/96 O2 Sat by Pulse 99 99 Oximetry - General Apperance Constitutional: comfortable - EENT EENT: PERRL, mucous membranes moist - Respiratory Respiratory: chest non-tender, lungs clear, rhonchi - Cardiovascular Cardiovascular: regular rate, normal S1, normal S2 Extremities: no peripheral edema bilat, no clubbing, cyanosis - Gastrointestinal Gastrointestinal: normoactive bowel sounds - Integumentary Integumentary: normal - Neurologic Cranial nerve examination: PERRL, EOMI, intact Speech examination: other (can say few words mostly says ninfa) Detailed motor examination: other (diffuse motor 4/5 bilteral upper better than lower) - Laboratory Findings CBC and BMP: 05/27/21 08:49 05/29/21 05:36 Abnormal Lab Findings: Abnormal Labs 05/27/21 05/27/21 05/28/21 08:49 08:49 05:59 MCV 95 H RDW 13.1 L Lymph % (Auto) 36.6 H Potassium 3.1 L 3.1 L Chloride 107.4 H Carbon Dioxide 11 L BUN 8 L Creatinine 0.7 L Glucose 136 H 05/29/21 05:36 MCV RDW Lymph % (Auto) Potassium 3.2 L Chloride 109.1 H Carbon Dioxide BUN 7 L Creatinine 0.4 L Glucose
[2021-05-29] MEDS: levETIRAcetam 500 MG/5 ML ORAL LIQD PO SCH (10:33)
[2021-05-29] MEDS: SENNOSIDES 8.6 MG TAB PO SCH (10:34)
[2021-05-29] MEDS: amLODIPine 10 MG TAB PO SCH (10:34)
[2021-05-29] MEDS: LACOSAMIDE 50 MG TAB PO SCH (10:35)
[2021-05-29] MEDS: POTASSIUM CHLORIDE 10 MEQ 10 MEQ/100 ML BAG IV SCH ×3 (12:01→14:11)
[2021-05-29 13:38] VITALS: BP 146/101
--- NOTE | 2021-05-29 16:33 | Discharge Summary ---
Providers - Providers Date of Admission: 05/27/21 12:43 Date of discharge: 05/29/21 Attending physician: SOCRATES PRETTY 05/28/21 10:33 Consult to Physician [CONS] Routine Comment: Consulting Provider: TONY BRICE Physician Instructions: Reason For Exam: seizure Primary care physician: PANTOGRAPH ENGRAVER Hospitalization Condition: Stable Pertinent studies: Head CT Hospital course: This is 25 ys old male with hx of Fragil X syndrom and seizure presented with recurrent seizure noted by family He is compliant with medication as per mom -Ct brain is unremarkable -EEG is remarkable for diffuse slowing and recurrent jenkins on right mid temporal T4 -UDS is positive for Benzo -Patient is on Keppra 1700 mg liq. bid -consulted neurology and initiated on Vimpat 50 mg Bid which is tolerated well -patient will be discharge home with outpt neurology f/u - Discharge plan and mx was discussed with pt mother and she verbalized understanding Disposition: 01 HOME / SELF CARE / HOMELESS Final Discharge Diagnosis (Prints w/discharge instructions): -- Status epilepticus. -- Encephalopathy. -- Fragile X syndrome,. --hypokalemia - repleted Time spent for discharge: 34 MINUTES a day. Hypothenar vitamin D3 evaluation no available [place] Core Measure Documentation - Palliative Care Palliative Care/ Comfort Measures: Not Applicable - Core Measures Any of the following diagnoses?: none Exam - Physical Exam Narrative exam: GENERAL: well-developed and well-nourished AAM lying on bed appeared to be in no discomfort. HEENT: Normocephalic. Atraumatic. No conjunctival congestion or icterus. Patient has moist mucous membranes. NECK: Supple. Trachea midline. CHEST/LUNGS: Clear to auscultated bilaterally, breathing nonlabored. No wheezes crackles or rhonchi. HEART/CARDIOVASCULAR: Regular in rate and rhythm. S1 and S2 positive. ABDOMEN: Abdomen is soft, nontender. Patient has normal bowel sounds. SKIN: There is no rash. Warm and dry. NEURO: No focal motor deficit. Follows command. MUSCULOSKELETAL: No joint effusion or tenderness. EXTRIMITY: No edema, no cyanosis or clubbing. PSYCH: Cooperative. - Constitutional Vitals: Temp Pulse Resp BP Pulse Ox 97.8 F 83 18 146/101 100 05/29/21 11:07 05/29/21 11:07 05/29/21 11:07 05/29/21 11:07 05/29/21 11:07 Plan Activity: advance as tolerated Weight Bearing Status: Weight Bear as Tolerated Diet: low fat, low salt Additional Instructions: Follow-up with neurologist in 1 week Follow up with: PRIMARY CARE, [Primary Care Provider] - 3-5 Days Prescriptions: amLODIPine 10 mg PO QDAY #30 tablet Lacosamide [Vimpat] 50 mg PO Q12HR #60 tablet
== END 2021-05-29 18:25 | disposition home or self-care (01) | DRG 101 ==
LOC: ED 08:36 → 4A 12:43
PROVIDERS: ADMIT Internal Medicine; ATTEND Internal Medicine
DX: G40.401 Other generalized epilepsy and epileptic syndromes, not intractable, with status epilepticus (principal); Q99.2 Fragile X chromosome; E87.6 Hypokalemia; Z79.899 Other long term (current) drug therapy
CPT/HCPCS: 36415; 70450; 80048; 80053; 80076; 80307; 80320; 83735; 85025; 87040; 93005; 95816; G0378; G0480; J1953; J2060; J3246; J3480; J7030; J7042

== ENCOUNTER 2021-06-21 04:36 | Emergency (ER) | payer MEDICAID ==
[2021-06-21] MEDS ORDERED: LORazepam 2 MG/ML VIAL ONE (04:38)
[2021-06-21 05:31] LABS: Basophils % (Auto) 0.4 % (0.0-1.8); Hematocrit 46.6 % (35.5-45.6); Hemoglobin 15.6 gm/dl (11.8-15.2); Lymphocytes # (Auto) 0.8 K/mm3 (1.2-5.4); Mean Corpuscular HGB Conc 34 % (32-34); Mean Corpuscular Volume 95 fl (84-94); Monocytes # (Auto) 0.5 K/mm3 (0.0-0.8); Monocytes % (Auto) 4.5 % (0.0-7.3); Red Blood Count 4.91 M/mm3 (3.65-5.03); Red Cell Distribution Width 13.4 % (13.2-15.2)
[2021-06-21 05:53] LABS: Alanine Aminotransferase 11 units/L (7-56); Albumin 4.8 g/dL (3.9-5); Blood Urea Nitrogen 8 mg/dL (9-20); Calcium 9.7 mg/dL (8.4-10.2); Hemolysis Index 264
[2021-06-21 05:54] LABS: BUN/Creatinine Ratio 13
[2021-06-21 06:15] LABS: Platelet Count 126 K/mm3 (140-440)
--- NOTE | 2021-06-21 06:42 | Emergency Department Report ---
ED Seizure HPI - General Chief Complaint: Seizure Stated Complaint: SEIZURES Time Seen by Provider: 06/21/21 06:10 Source: EMS Mode of arrival: Stretcher Limitations: Altered Mental Status - History of Present Illness Initial Comments: 25-year-old male, history of seizure disorder, Fragile X syndrome, developmental delay, presents to ED following seizure at home. Mother reports patient had 3 seizures. Patient actively seizing to ED arrival. Patient is currently postictal. He is asleep, arousable, but does not answer questions. EMS reports patient's medication was recently changed from Keppra to Vimpat due to Keppra not working. I spoke with patient's mother over the phone, Klaudia daily. Mother reports patient has been compliant with his Vimpat. Mother states patient ate some sweets on yesterday. She states this can trigger a seizure in the patient. She believes the cookies triggered his seizures this morning. MD Complaint: seizure -: This morning Description of Episode: loss of consciousness Witnessed:: Yes Seizure History: known seizure disorder Place: home Treatments Prior to Arrival: benzodiazepines - Related Data Previous Rx's Medication Instructions Recorded Last Taken Type Lacosamide [Vimpat] 50 mg PO Q12HR #60 tablet 05/29/21 Unknown Rx amLODIPine 10 mg PO QDAY #30 tablet 05/29/21 Unknown Rx levETIRAcetam [Keppra] 1,700 mg PO BID 30 Days [facility] 05/29/21 Unknown Rx Allergies Allergy/AdvReac Type Severity Reaction Status Date / Time No Known Allergies Allergy Verified 06/21/21 05:12 ED Review of Systems ROS: Stated complaint: SEIZURES Other details as noted in HPI Comment: Unobtainable due to pts medical conditions ED Past Medical Hx - Past Medical History Hx Congestive Heart Failure: No Hx Diabetes: No 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) Hx Asthma: No Hx COPD: No Hx HIV: No Additional medical history: MR and seizures - Surgical History Past Surgical History?: No - Social History Smoking Status: Unknown if ever smoked - Medications Home Medications: Home Medications Medication Instructions Recorded Confirmed Last Taken Type Lacosamide [Vimpat] 50 mg PO Q12HR #60 tablet 05/29/21 Unknown Rx amLODIPine 10 mg PO QDAY #30 tablet 05/29/21 Unknown Rx levETIRAcetam [Keppra] 1,700 mg PO BID 30 Days [facility] [place] 05/29/21 Unknown Rx ED Physical Exam - General Limitations: Altered Mental Status General appearance: lethargic - Head Head exam: Present: atraumatic, normocephalic - Eye Eye exam: Present: normal appearance, PERRL - ENT ENT exam: Present: mucous membranes moist - Neck Neck exam: Present: normal inspection - Respiratory Respiratory exam: Present: normal lung sounds bilaterally. Absent: respiratory distress - Cardiovascular Cardiovascular Exam: Present: regular rate, normal rhythm - GI/Abdominal GI/Abdominal exam: Present: soft. Absent: distended, tenderness - Extremities Exam Extremities exam: Present: normal inspection - Neurological Exam Neurological exam: Present: altered, other (Postictal, sleeping, awakes to and localizes noxious stimuli then falls back asleep; moves all extremities) - Skin Skin exam: Present: warm, dry, intact, normal color ED Course Vital Signs 06/21/21 06/21/21 06/21/21 04:53 05:01 05:08 Temperature 98.9 F Pulse Rate 98 H 87 96 H Respiratory 17 16 Rate Blood Pressure 142/87 O2 Sat by Pulse 97 96 98 Oximetry 06/21/21 06/21/21 06/21/21 05:15 05:31 06:01 Temperature Pulse Rate 86 88 87 Respiratory 17 15 15 Rate Blood Pressure 142/87 130/79 122/79 O2 Sat by Pulse 95 95 97 Oximetry 06/21/21 06/21/21 06/21/21 06:31 07:01 07:31 Temperature Pulse Rate 93 H 66 84 Respiratory 15 15 15 Rate Blood Pressure 130/71 124/74 131/83 O2 Sat by Pulse 96 97 98 Oximetry 06/21/21 06/21/21 06/21/21 08:01 08:11 08:31 Temperature Pulse Rate 87 72 Respiratory 14 15 Rate Blood Pressure 129/77 124/83 O2 Sat by Pulse 97 99 99 Oximetry 06/21/21 06/21/21 06/21/21 08:59 09:19 09:22 Temperature Pulse Rate 80 Respiratory 14 Rate Blood Pressure 124/83 124/83 75/35 O2 Sat by Pulse 97 98 98 Oximetry 06/21/21 06/21/21 06/21/21 09:25 09:35 10:01 Temperature Pulse Rate Respiratory Rate Blood Pressure 75/35 140/86 131/77 O2 Sat by Pulse 98 99 99 Oximetry - Reevaluation(s) Reevaluation #1: 06/21/21 11:19 Patient ate entire breakfast tray. He is currently awake and alert sitting up in bed, interacting appropriately. No seizures here in the ED. Will call mother for discharge. ED Medical Decision Making - Lab Data Result diagrams: 06/21/21 Unknown 06/21/21 Unknown - Radiology Data Radiology results: report reviewed, image reviewed - Medical Decision Making 25-year-old male, history of recurrent seizures, presents to ED following seizure at home. Mother believes his seizure was triggered by him eating sweets, which included drinking juice and eating cookies. She reports he is compliant with his medications. Vital signs are normal and stable. Labs are unremarkable. Patient received CT head for prolonged postictal, which showed no acute findings. Patient eventually returned to his baseline. No further seizures here in ED. He was given a meal tray for breakfast and lunch, both of which he ate. Patient will be discharged at this time. Outpatient follow-up with neurology advised, return precautions given. - Differential Diagnosis Electrolyte abnormality, intracranial abnormality Critical care attestation.: If time is entered above; I have spent that time in minutes in the direct care of this critically ill patient, excluding procedure time. ED Disposition Clinical Impression: Seizure Disposition: 01 HOME / SELF CARE / HOMELESS Is pt being admited?: No Condition: Stable Instructions: Seizure, Adult, [id number] Referrals: PRIMARY CARE, [Primary Care Provider] - 3-5 Days Time of Disposition: 11:20
--- NOTE | 2021-06-21 09:42 | Cat Scan Report ---
CT head/brain wo con INDICATION / CLINICAL INFORMATION: 25 years Male; seizure. TECHNIQUE: Routine CT head without contrast. All CT scans at this location are performed using CT dos e reduction for ALARA by means of automated exposure control. COMPARISON: The study is compared to previous CT of 05/27/2021. FINDINGS: BRAIN / INTRACRANIAL CONTENTS: The motion degrades the image quality. However, the brain parenchyma a ppears to demonstrate appropriate attenuation without significant interval change from 05/27/2021. The re is again noted developmental cavum septum vergae. The ventricular system is unchanged in size and configuration. There is no clear CT evidence of acute intracranial hemorrhage or significant mass eff ect. ORBITS: No significant abnormality of visualized orbits. SINUSES / MASTOIDS: There is continued focal opacification along the visualized inferior, anterior ri ght maxillary sinus. CRANIOCERVICAL JUNCTION: No significant abnormality. ADDITIONAL FINDINGS: There is developmental magna cisterna magna. IMPRESSION: 1. There is no CT evidence of acute intracranial process. Signer Name: Pernell Mack MD Signed: 06/21/2021 9:38 AM Workstation Name: [id number]
[2021-06-21 17:09] VITALS: BP 119/76
== END 2021-06-21 17:31 | disposition home or self-care (01) ==
LOC: ED 04:36
DX: R56.9 Unspecified convulsions (principal)
CPT/HCPCS: 36415; 70450; 80053; 84132; 85025; J2060

== ENCOUNTER 2021-07-11 08:01 | Observation (INO) | payer MEDICAID ==
[2021-07-11] MEDS ORDERED: levETIRAcetam 1000 MG/NS 0.75% 1,000 MG/100 ML BAG IV ONE (08:37)
--- NOTE | 2021-07-11 09:02 | Emergency Department Report ---
ED Seizure HPI - General Chief Complaint: Seizure Stated Complaint: SEIZURE Time Seen by Provider: 07/11/21 08:29 Source: EMS Mode of arrival: Ambulatory Limitations: No Limitations - History of Present Illness Initial Comments: Chief complaint: Seizure HPI: 25-year-old male with history of seizure disorder, fragile X syndrome, intellectual delay who presents with seizure. According to electronic medical record, antiepileptic is Vimpat 100 mg twice daily. I evaluated this patient recently. Patient has been admitted several times for status epilepticus. According to EMS, family member witnessed 3 seizures. Patient received 2 mg lorazepam intranasally through atomizer. Also received 2 additional milligrams of lorazepam IV. MD Complaint: seizure Description of Episode: loss of consciousness, tonic-clonic movement Witnessed:: Yes Trauma: No Seizure History: known seizure disorder - Related Data Previous Rx's Medication Instructions Recorded Last Taken Type Lacosamide [Vimpat] 100 mg PO Q12HR #60 tablet 06/23/21 Unknown Rx Allergies Allergy/AdvReac Type Severity Reaction Status Date / Time No Known Allergies Allergy Verified 06/21/21 05:12 ED Review of Systems ROS: Stated complaint: SEIZURE Other details as noted in HPI Comment: Unobtainable due to pts medical conditions (Intellectual delay) ED Past Medical Hx - Past Medical History Previous Medical History?: Yes Hx Congestive Heart Failure: No Hx Diabetes: No 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) Hx Asthma: No Hx COPD: No Hx HIV: No Additional medical history: MR and seizures - Social History Smoking Status: Never Smoker Substance Use Type: None - Medications Home Medications: Home Medications Medication Instructions Recorded Confirmed Last Taken Type Lacosamide [Vimpat] 100 mg PO Q12HR #60 tablet 06/23/21 Unknown Rx ED Physical Exam - General Limitations: No Limitations General appearance: lethargic, other (Sedated, purposeful movement, legs crossed at the ankles) - Head Head exam: Present: atraumatic, normocephalic - Eye Eye exam: Absent: scleral icterus, conjunctival injection - ENT ENT exam: Present: mucous membranes moist - Neck Neck exam: Present: normal inspection, full ROM - Respiratory Respiratory exam: Present: normal lung sounds bilaterally. Absent: respiratory distress - Cardiovascular Cardiovascular Exam: Present: normal rhythm, tachycardia, normal heart sounds. Absent: systolic murmur, diastolic murmur, rubs, gallop - GI/Abdominal GI/Abdominal exam: Present: soft, normal bowel sounds. Absent: distended, tenderness, guarding - Rectal Rectal exam: Present: deferred - Extremities Exam Extremities exam: Present: normal inspection - Psychiatric Psychiatric exam: Present: flat affect - Skin Skin exam: Present: warm, dry, intact, normal color. Absent: rash ED Course Vital Signs 07/11/21 07/11/21 07/11/21 08:16 08:17 08:30 Temperature 98.1 F Pulse Rate 136 H Respiratory 18 16 Rate Blood Pressure 145/75 101/45 O2 Sat by Pulse 98 98 96 Oximetry 07/11/21 07/11/21 07/11/21 08:31 09:00 09:31 Temperature Pulse Rate 145 H 133 H Respiratory 16 16 15 Rate Blood Pressure 145/75 99/44 97/51 O2 Sat by Pulse 91 97 98 Oximetry 07/11/21 07/11/21 07/11/21 10:01 10:31 11:01 Temperature Pulse Rate Respiratory 15 14 16 Rate Blood Pressure 103/60 108/75 113/75 O2 Sat by Pulse 99 98 97 Oximetry 07/11/21 07/11/21 07/11/21 11:31 12:01 12:31 Temperature Pulse Rate Respiratory 15 15 14 Rate Blood Pressure 119/82 123/82 125/88 O2 Sat by Pulse 99 98 99 Oximetry 07/11/21 13:01 Temperature Pulse Rate Respiratory 15 Rate Blood Pressure 123/81 O2 Sat by Pulse 99 Oximetry ED Medical Decision Making - Lab Data Result diagrams: 07/11/21 08:59 07/11/21 08:59 - EKG Data EKG shows normal: sinus rhythm, axis Rate: tachycardia - EKG Data 07/11/21 09:01 EKG obtained 08 for significant tachycardia EKG interpreted by ks Sinus tachycardia rate 140 bpm normal axis normal intervals no ST elevation nonspecific T wave pattern - Medical Decision Making Status epilepticus: patient received 4 mg lorazepam prior to arrival. Still sedated. Protecting airway. After 6.5 hours observation in the emergency department patient still sedated. Patient is admitted to the hospital service. I was unable to contact mother per phone. IV Keppra load administered in the emergency department Lab review: Mild anion gap metabolic acidosis reflective of seizure activity. Presumably lactic acidosis. Mild leukocytosis due to demarginalization. Patient has been observed on panel monitor and continuous pulse oximetry. Critical Care Time: Yes Critical care time in (mins) excluding proc time.: 40 Critical care attestation.: If time is entered above; I have spent that time in minutes in the direct care of this critically ill patient, excluding procedure time. 40 minutes of critical care time excluding procedures were used in the care of the patient. I came immediately to the bedside upon patient's arrival. I obtained history from EMS at the bedside. I discussed treatment plan with the nursing team members. I reviewed electronic record. I kept the family member informed. Patient required multiple interventions and reassessments. I was concerned for airway compromise considering patient received sedating agents large dose of lorazepam. ED Disposition Clinical Impression: Status epilepticus Disposition: ADMITTED INPATIENT Is pt being admited?: Yes Does the pt Need Aspirin: No Condition: Fair
[2021-07-11 09:37] LABS: Basophils % (Auto) 0.4 % (0.0-1.8); Eosinophils % (Auto) 0.2 % (0.0-4.3); Hematocrit 40.5 % (35.5-45.6); Hemoglobin 13.7 gm/dl (11.8-15.2); Lymphocytes % (Auto) 8.7 % (13.4-35.0); Mean Corpuscular HGB Conc 34 % (32-34); Mean Corpuscular Volume 92 fl (84-94); Monocytes # (Auto) 0.4 K/mm3 (0.0-0.8); Monocytes % (Auto) 3.6 % (0.0-7.3); Platelet Count 162 K/mm3 (140-440)
[2021-07-11 09:53] LABS: Alanine Aminotransferase 18 units/L (7-56); Albumin 4.4 g/dL (3.9-5); BUN/Creatinine Ratio 20; Blood Urea Nitrogen 18 mg/dL (9-20); Hemolysis Index 29
--- NOTE | 2021-07-11 14:30 | History and Physical Report ---
History of Present Illness Chief complaint: He had another seizure today History of present illness: 25 YO Male with Seizure Disorder, Fragile X Syndrome, Mental Retardation presents to ED for evaluation. Pt unable to provide history, but history provided by patient family, who is available via telephone for interview. As per mother, the patient experienced several witnessed seizures this morning. EMS was notified and upon arrival the patient was found to be in distress. The patient was subsequently transported to [facility] for further care and evaluation of the aforementioned symptoms. The patient was seen and evaluated in the emergency department. All lab and imaging studies reviewed. The patient was found to have status epilepticus and was treated with antiepileptic therapy. The patient was placed in observation status and admitted to medical floor due to increased risk of worsening symptoms. No reports of fever, chills, chest pain, palpitation, productive cough, trauma, skin rash, recent ill contacts, known exposure to COVID-19. Patient mother reports compliance with medical therapy. Patient has diminished cognition but has a positive gag reflex and is able to protect his airway without difficulty at the time my evaluation. Prior admission records on 06/22/2021 reviewed. All medication listed at time of admission has been reconciled. Advanced care planning conducted in ED. Past History Past Medical History: seizures, other (See HPI) Past Surgical History: No surgical history, Other (Reviewed) Social history: single. denies: smoking, alcohol abuse, prescription drug abuse Family history: hypertension Medications and Allergies Allergies Allergy/AdvReac Type Severity Reaction Status Date / Time No Known Allergies Allergy Verified 06/21/21 05:12 Home Medications Medication Instructions Recorded Confirmed Last Taken Type Lacosamide [Vimpat] 100 mg PO Q12HR #60 tablet 06/23/21 Unknown Rx Review of Systems ROS unobtainable: due to mental status Exam - Constitutional Vitals: Temp Pulse Resp BP Pulse Ox 98.1 F 133 H 15 123/81 99 07/11/21 08:30 07/11/21 09:00 07/11/21 13:01 07/11/21 13:01 07/11/21 13:01 General appearance: Present: mild distress, cachectic - EENT Eyes: Present: PERRL ENT: clear oral mucosa, hearing decreased - Neck Neck: Present: supple - Respiratory Respiratory effort: normal Respiratory: bilateral: CTA - Cardiovascular Heart Sounds: Present: S1 & S2. Absent: rub, click - Extremities Extremities: pulses symmetrical, No edema Peripheral Pulses: within normal limits - Abdominal General gastrointestinal: Present: soft, non-tender, non-distended, normal bowel sounds Male genitourinary: Present: normal - Integumentary Integumentary: Present: clear, dry - Musculoskeletal Musculoskeletal: generalized weakness - Psychiatric Psychiatric: no appropriate mood/affect, no intact judgment & insight, no memory intact - Neurologic Neurologic: CNII-XII intact, moves all extremities, no gait normal Results - Labs CBC & Chem 7: 07/11/21 08:59 07/11/21 08:59 Labs: Abnormal lab results 07/11/21 07/11/21 Range/Units 08:59 08:59 WBC 11.5 H (4.5-11.0) K/mm3 RDW 13.0 L (13.2-15.2) % Lymph % (Auto) 8.7 L (13.4-35.0) % Lymph # (Auto) 1.0 L (1.2-5.4) K/mm3 Seg Neutrophils % 87.1 H (40.0-70.0) % Seg Neutrophils # 10.0 H (1.8-7.7) K/mm3 Carbon Dioxide 18 L (22-30) mmol/L Glucose 106 H (75-100) mg/dL Assessment and Plan - Patient Problems (1) Status epilepticus Current Visit: Yes Status: Acute Plan to address problem: Neuro check, seizure cautions, aspiration cautions, antiepileptic therapy, Keppra loading dose in the emergency department, resume prehospital antiepileptic therapy. (2) Fragile X syndrome Current Visit: No Status: Acute Plan to address problem: Supportive care, fall precautions, aspiration precautions, seizure precautions (3) DVT prophylaxis Current Visit: No Status: Acute Plan to address problem: SCDs bilateral lower extremities while in bed (4) Advance care planning Current Visit: No Status: Acute Plan to address problem: Disease education conducted, care plan discussed, diagnosis discussed, patient is full code, patient family knowledge understanding agreement with care plan, +30 minutes.
[2021-07-11] MEDS ORDERED: ACETAMINOPHEN 325 MG TAB PO PRN (14:36)
[2021-07-11] MEDS ORDERED: oxyCODONE /ACETAMINOPHEN 5-325MG TAB PO PRN (14:36)
[2021-07-11] MEDS ORDERED: ALBUTEROL 2.5 MG/3 ML NEBU IH PRN (14:36)
[2021-07-11] MEDS ORDERED: HYDROmorphone 1 MG/1 ML INJ IV PRN (14:36)
[2021-07-11] MEDS ORDERED: ONDANSETRON 4 MG/2 ML INJ IV PRN (14:36)
[2021-07-12 05:41] LABS: Blood Urea Nitrogen 12 mg/dL (9-20); Calcium 8.8 mg/dL (8.4-10.2); Hemolysis Index 18
[2021-07-12 05:43] LABS: BUN/Creatinine Ratio 20
[2021-07-12] MEDS ORDERED: levETIRAcetam 500 MG TAB PO SCH (10:00)
[2021-07-12 17:07] VITALS: BP 128/80
--- NOTE | 2021-07-14 11:03 | Electrocardiograph Report ---
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
== END 2021-07-12 14:20 | disposition home or self-care (01) ==
LOC: ED 08:01 → 3A 16:42 → INTOOBSV 16:42
PROVIDERS: ADMIT Internal Medicine; ATTEND Student in an Organized Health Care Education/Training Program
DX: G40.901 Epilepsy, unspecified, not intractable, with status epilepticus (principal); Q99.2 Fragile X chromosome; Z71.89 Other specified counseling; Z79.899 Other long term (current) drug therapy
CPT/HCPCS: 36415; 80048; 80053; 85025; 93005; 96374; 99291; G0378; J1953; 96365; 96366

== ENCOUNTER 2021-12-19 10:19 | Emergency (ER) | payer MEDICAID, OTHER ==
[2021-12-19] MEDS ORDERED: levETIRAcetam 1000 MG/NS 0.75% 1,000 MG/100 ML BAG IV ONE (10:32)
--- NOTE | 2021-12-19 10:32 | Emergency Department Report ---
ED Seizure HPI - General Chief Complaint: Seizure Stated Complaint: seizure Time Seen by Provider: 12/19/21 10:24 Source: EMS Mode of arrival: Stretcher Limitations: Altered Mental Status - History of Present Illness Initial Comments: Patient was brought in by ambulance for seizures. EMS was called because of a generalized tonic-clonic seizure. Family was on scene. They reported to EMS that the patient had "not been taking his medication as usual." The patient does have fragile X and relies on his family to administer his medication. Ultimately, the patient was brought here. He was postictal according to EMS. He also has some developmental delay consistent with his fragile X syndrome. There has been no recent reports of trauma or injury. There has been no recent reports of illness. Family is not present upon EMS arrival to provide further history at this time. - Related Data Previous Rx's Medication Instructions Recorded Last Taken Type Lacosamide [Vimpat] 100 mg PO Q12HR #60 tablet 06/23/21 Unknown Rx levETIRAcetam [Keppra TAB] 500 mg PO BID 30 Days #60 tablet 07/12/21 Unknown Rx Allergies Allergy/AdvReac Type Severity Reaction Status Date / Time No Known Allergies Allergy Verified 12/04/21 11:38 ED Review of Systems ROS: Stated complaint: seizure Other details as noted in HPI Comment: Unobtainable due to pts medical conditions (Fragile X and developmental delay) ED Past Medical Hx - Past Medical History Hx Congestive Heart Failure: No Hx Diabetes: No Hx Seizures: Yes Hx Asthma: No Hx COPD: No Hx HIV: No Additional medical history: MR - Surgical History Additional Surgical History: 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 - Family History Family history: other (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) - Social History Smoking Status: Unknown if ever smoked Substance Use Type: Other (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) - Medications Home Medications: Home Medications Medication Instructions Recorded Confirmed Last Taken Type Lacosamide [Vimpat] 100 mg PO Q12HR #60 tablet 06/23/21 07/11/21 Unknown Rx levETIRAcetam [Keppra TAB] 500 mg PO BID 30 Days #60 tablet 07/12/21 Unknown Rx ED Physical Exam - General Limitations: No Limitations, Altered Mental Status (Chronic), Other (Pulse ox noted and normal) General appearance: alert, in no apparent distress - Head Head exam: Present: atraumatic, normocephalic - Eye Eye exam: Present: normal appearance, PERRL, EOMI. Absent: scleral icterus - ENT ENT exam: Present: normal orophraynx, normal external ear exam - Neck Neck exam: Present: normal inspection. Absent: meningismus - Respiratory Respiratory exam: Present: normal lung sounds bilaterally. Absent: respiratory distress - Cardiovascular Cardiovascular Exam: Present: regular rate, normal rhythm - GI/Abdominal GI/Abdominal exam: Present: soft. Absent: tenderness - Extremities Exam Extremities exam: Present: normal capillary refill - Back Exam Back exam: Absent: CVA tenderness (R), CVA tenderness (L) - Neurological Exam Neurological exam: Present: alert, altered (Chronically), reflexes normal - Psychiatric Psychiatric exam: Present: other (Pleasant and cooperative) - Skin Skin exam: Present: warm, dry ED Course Vital Signs 12/19/21 12/19/21 12/19/21 10:20 10:50 11:01 Temperature 98.7 F Pulse Rate 90 Respiratory 16 Rate Blood Pressure 125/88 Blood Pressure 150/90 [Left] O2 Sat by Pulse 99 99 93 Oximetry 12/19/21 12/19/21 12/19/21 11:15 11:28 11:31 Temperature Pulse Rate 94 H 80 Respiratory 16 16 17 Rate Blood Pressure 125/88 125/88 Blood Pressure [Left] O2 Sat by Pulse 99 98 99 Oximetry - Reevaluation(s) Reevaluation #1: 12/19/21 10:32 EMS was met. Labs were ordered. Old records reviewed. Keppra was ordered. Reevaluation #2: 12/19/21 11:48 Chemistries are noted. The patient was discharged back to his family. ED Medical Decision Making - Lab Data Result diagrams: 12/19/21 10:57 - Medical Decision Making Patient was brought in by ambulance for seizure. He has not had seizure activity here. He seems to be cooperative and conversant. There is no new focal neurologic finding on exam suggestive of intracranial injury. I do not believe CT is necessary. He has no metabolic derangement. He was loaded with Keppra as there was some debate as to whether he was actually getting his medication. Patient was discharged. Critical Care Time: No Critical care attestation.: If time is entered above; I have spent that time in minutes in the direct care of this critically ill patient, excluding procedure time. ED Disposition Clinical Impression: Breakthrough seizure Disposition: 01 HOME / SELF CARE / HOMELESS Is pt being admited?: No Condition: Stable Instructions: Epilepsy, [id number] Additional Instructions: Continue to use the medicine and administer the patient's medicine to him on a scheduled basis. Follow-up with his family doctor or the referral physician for recheck. Referrals: PRIMARY CAREMD [Referring] - 3-5 Days URBANO BURRIS MD [Staff Physician] - 3-5 Days
[2021-12-19 11:39] LABS: Blood Urea Nitrogen 15 mg/dL (9-20); Calcium 9.4 mg/dL (8.4-10.2); Hemolysis Index 50
[2021-12-19 11:46] LABS: BUN/Creatinine Ratio 25
[2021-12-19 13:29] VITALS: BP 116/70
== END 2021-12-19 13:29 | disposition home or self-care (01) ==
LOC: ED 10:19
DX: R56.9 Unspecified convulsions (principal)
CPT/HCPCS: 36415; 80048; 96374; 99284; J1953

== ENCOUNTER 2022-01-24 14:15 | Emergency (ER) | payer MEDICAID ==
[2022-01-24] MEDS ORDERED: levETIRAcetam 1000 MG/NS 0.75% 1,000 MG/100 ML BAG IV ONE (15:43)
[2022-01-24] MEDS ORDERED: SODIUM CHLORIDE 0.9% 1000 ML 1,000 ML IV ONE (15:43)
--- NOTE | 2022-01-24 16:19 | XRay Report ---
CHEST 1 VIEW 01/24/2022 3:11 PM INDICATION / CLINICAL INFORMATION: Dyspnea. COMPARISON: 07/27/20 FINDINGS: SUPPORT DEVICES: None. HEART / MEDIASTINUM: No significant abnormality. LUNGS / PLEURA: No significant pulmonary or pleural abnormality. No pneumothorax. ADDITIONAL FINDINGS: No significant additional findings. IMPRESSION: 1. No acute findings. No change. Signer Name: Jeanne Crook MD Signed: 01/24/2022 4:15 PM Workstation Name: [id number]
[2022-01-24 17:30] LABS: Mean Corpuscular HGB Conc 31 % (32-34); Mean Corpuscular Volume 93 fl (84-94); Red Blood Count 4.72 M/mm3 (3.65-5.03)
[2022-01-24 17:31] LABS: Hematocrit 44.1 % (35.5-45.6); Hemoglobin 13.5 gm/dl (11.8-15.2); Platelet Count 143 K/mm3 (140-440)
[2022-01-24 18:07] LABS: Bilirubin,Urine NEG (Negative); Blood,Urine NEG (Negative); Color,Urine Straw (Yellow); Mucus,Urine FEW /HPF; Protein,Urine <15 mg/dL mg/dL (Negative); Urobilinogen,Urine < 2.0 mg/dL (<2.0)
[2022-01-24 18:11] LABS: Amphetamine Screen,Urine Negative; Benzodiazepines Screen,Urine Negative; Cannabinoid Screen,Urine Negative; Cocaine Screen,Urine Negative; Methadone Screen,Urine Negative; Opiate Screen,Urine Negative
[2022-01-24 18:39] VITALS: BP 139/97
[2022-01-24 19:03] LABS: Alanine Aminotransferase 7 units/L (7-56); Albumin 4.2 g/dL (3.9-5); Blood Urea Nitrogen 8 mg/dL (9-20); Calcium 8.8 mg/dL (8.4-10.2); Hemolysis Index 30
[2022-01-24 19:09] LABS: BUN/Creatinine Ratio 16
--- NOTE | 2022-01-24 19:32 | Emergency Department Report ---
ED Seizure HPI - General Chief Complaint: Seizure Stated Complaint: SEIZURE Time Seen by Provider: 01/24/22 15:42 Source: EMS Mode of arrival: Stretcher Limitations: No Limitations - History of Present Illness Initial Comments: T ARRIVING FROM HOME, WITNESSED SEIZURE. BGL 122. OUT OF MEDS X3 DAYS Complaint: seizure -: Sudden, hour(s) Description of Episode: loss of consciousness, tonic-clonic movement Witnessed:: Yes Trauma: No Seizure History: known seizure disorder Place: home Possible Precipitating Event: none Associated Symptoms: denies: denies other symptoms, chest pain, confusion, cough - Related Data Previous Rx's Medication Instructions Recorded Last Taken Type Lacosamide [Vimpat] 100 mg PO Q12HR #60 tablet 06/23/21 Unknown Rx levETIRAcetam [Keppra TAB] 500 mg PO BID 30 Days #60 tablet 07/12/21 Unknown Rx Allergies Allergy/AdvReac Type Severity Reaction Status Date / Time No Known Allergies Allergy Verified 01/24/22 14:25 ED Review of Systems ROS: Stated complaint: SEIZURE Other details as noted in HPI Constitutional: denies: chills, fever Eyes: denies: eye pain, eye discharge, vision change ENT: denies: ear pain, throat pain Respiratory: denies: cough, shortness of breath, wheezing Cardiovascular: denies: chest pain, palpitations Endocrine: no symptoms reported Gastrointestinal: denies: abdominal pain, nausea, diarrhea Genitourinary: denies: urgency, dysuria Musculoskeletal: denies: back pain, joint swelling, arthralgia Skin: denies: rash, lesions Neurological: denies: headache, weakness, paresthesias Psychiatric: denies: anxiety, depression Hematological/Lymphatic: denies: easy bleeding, easy bruising ED Past Medical Hx - Past Medical History Hx Congestive Heart Failure: No Hx Diabetes: No Hx Seizures: Yes Hx Asthma: No Hx COPD: No Hx HIV: No Additional medical history: MR - Surgical History Additional Surgical History: 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 - Social History Smoking Status: Unknown if ever smoked Substance Use Type: Other (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) - Medications Home Medications: Home Medications Medication Instructions Recorded Confirmed Last Taken Type Lacosamide [Vimpat] 100 mg PO Q12HR #60 tablet 06/23/21 07/11/21 Unknown Rx levETIRAcetam [Keppra TAB] 500 mg PO BID 30 Days #60 tablet 07/12/21 Unknown Rx ED Physical Exam - General Limitations: No Limitations General appearance: alert, in no apparent distress - Head Head exam: Present: atraumatic, normocephalic - Eye Eye exam: Present: normal appearance - ENT ENT exam: Present: mucous membranes moist - Neck Neck exam: Present: normal inspection - Respiratory Respiratory exam: Present: normal lung sounds bilaterally. Absent: respiratory distress - Cardiovascular Cardiovascular Exam: Present: regular rate, normal rhythm. Absent: systolic m urmur, diastolic murmur, rubs, gallop - GI/Abdominal GI/Abdominal exam: Present: soft, normal bowel sounds - Rectal Rectal exam: Present: deferred - Extremities Exam Extremities exam: Present: normal inspection - Back Exam Back exam: Present: normal inspection - Neurological Exam Neurological exam: Present: alert, oriented X3 - Psychiatric Psychiatric exam: Present: normal affect, normal mood - Skin Skin exam: Present: warm, dry, intact, normal color. Absent: rash ED Course Vital Signs 01/24/22 01/24/22 01/24/22 14:23 15:43 16:48 Temperature 98.7 F Pulse Rate 63 77 Respiratory 18 19 Rate Blood Pressure 151/103 159/97 [Left] O2 Sat by Pulse 98 99 98 Oximetry 01/24/22 01/24/22 17:45 18:38 Temperature Pulse Rate 78 83 Respiratory 17 18 Rate Blood Pressure 131/90 139/97 [Left] O2 Sat by Pulse 96 97 Oximetry ED Medical Decision Making - Lab Data Result diagrams: 01/24/22 16:30 01/24/22 18:30 Critical care attestation.: If time is entered above; I have spent that time in minutes in the direct care o f this critically ill patient, excluding procedure time. ED Disposition Clinical Impression: Seizure Disposition: 01 HOME / SELF CARE / HOMELESS Is pt being admited?: No Does the pt Need Aspirin: No Condition: Stable Instructions: Epilepsy, Epilepsy, [id number]
== END 2022-01-25 14:51 | disposition home or self-care (01) ==
LOC: ED 14:15
DX: G40.909 Epilepsy, unspecified, not intractable, without status epilepticus (principal)
CPT/HCPCS: 36415; 71045; 80053; 80307; 81001; 85025; 96374; 99284; J1953; J7030; 96361